=== PATIENT | male | born 1945 | race Caucasian/White ===

== ENCOUNTER 2023-11-23 10:23 | Outpatient (RCR) | payer MEDICARE, SELFPAY | END 2023-11-23 23:59 | disposition home or self-care (01) | LOC: CRHB 10:23 | PROVIDERS: ATTENDING PHYSICIAN Internal Medicine Cardiovascular Disease; FAMILY PHYSICIAN Family Medicine | DX: I25.10 Atherosclerotic heart disease of native coronary artery without angina pectoris (principal); Z95.1 Presence of aortocoronary bypass graft | CPT/HCPCS: G0422; G0423 ==

== ENCOUNTER 2023-12-19 08:28 | Outpatient (RCR) | payer MEDICARE, SELFPAY ==
[2023-12-09 08:27] VITALS: BP 117/54
[2023-12-09] MEDS: INVANZ 60 MG IV (08:57)
[2023-12-09 09:21] LABS: INR 1.61; PT 19.4 Sec (11.4-14.6)
[2023-12-10 08:50] VITALS: BP 127/64
[2023-12-10] MEDS: INVANZ 60 MG IV (08:55)
[2023-12-11 08:55] VITALS: BP 128/70
[2023-12-11] MEDS: INVANZ 60 MG IV (08:58)
[2023-12-12] MEDS: INVANZ 60 MG IV (09:07)
[2023-12-12 09:11] VITALS: BP 134/61
[2023-12-12 09:33] LABS: % Basophils 0.2 % (0-2); % Eosinophils 0.2 % (0-6); % Immature Granulocytes 0.5 % (0-0.5); % Lymphocytes 11.4 % (20.5-51.1); % Monocytes 7.7 % (1.7-9.3); Absolute Immature Granulocytes 0.1 10^3/uL (0-0.05); Absolute Lymphocytes 1.1 10^3/uL (1.2-3.4); Absolute Monocytes 0.7 10^3/uL (0.1-0.6); Absolute Neutrophils 7.5 10^3/uL (1.4-6.5); Hemoglobin 8.4 g/dL (13.0-18.0); Mean Corp Hgb Conc. 32.3 g/dL (33.0-37.0); Mean Corpuscular Hgb 29.2 pg (27.0-31.0); Mean Corpuscular Volume 90.3 fL (80.0-94.0); Mean Platelet Volume 10.8 fL (7.4-10.4); Nucleated Red Blood Cells % 0 % (-); Platelet Count 264 10^3/uL (130-400); Red Blood Cell Count 2.88 10^6/uL (4.70-6.10); Red Cell Dist. Width 16.2 % (11.5-14.5); White Blood Cell Count 9.3 10^3/uL (4.8-10.8)
[2023-12-12 09:38] LABS: INR 2.11
[2023-12-12 09:53] LABS: ALT (SGPT) 93 U/L (0-50); AST (SGOT) 85 U/L (17-59); Albumin 2.4 g/dl (3.5-5.0); Alkaline Phosphatase 250 U/L (38-126); Blood Urea Nitrogen 30 mg/dl (9-20); Calcium 7.6 mg/dl (8.4-10.2); Carbon Dioxide 29 mmol/L (22-30); Chloride 104 mmol/L (98-107); Direct Bilirubin 0.6 mg/dl (0.0-0.4); Glucose 214 mg/dl (70-99); Potassium 4.3 mmol/L (3.5-5.1); Sodium 132 mmol/L (135-145); Total Bilirubin 0.7 mg/dl (0.2-1.3); Total Protein 7.7 g/dl (6.3-8.2); eGFR > 60.00
[2023-12-13 09:25] VITALS: BP 116/56
[2023-12-13] MEDS: INVANZ 60 MG IV (09:37)
[2023-12-14 09:22] VITALS: BP 117/60
[2023-12-14] MEDS: INVANZ 60 MG IV (09:32)
[2023-12-15] MEDS: INVANZ 60 MG IV (08:57)
[2023-12-15 09:04] VITALS: BP 101/56
[2023-12-16 08:30] VITALS: BP 117/40
[2023-12-16] MEDS: INVANZ 60 MG IV (08:59)
[2023-12-17 08:02] VITALS: BP 136/59
[2023-12-17] MEDS: INVANZ 60 MG IV (08:06)
[2023-12-18] MEDS: INVANZ 60 MG IV (09:55)
[2023-12-18 10:30] VITALS: BP 142/74
[2023-12-19 08:58] LABS: Glucose - Point of Care 144 mg/dl (70-99)
[2023-12-19] MEDS: INVANZ 60 MG IV (09:01)
[2023-12-19 09:06] VITALS: BP 108/46
[2023-12-19 09:15] LABS: % Basophils 0.3 % (0-2); % Eosinophils 0.4 % (0-6); % Immature Granulocytes 0.9 % (0-0.5); % Lymphocytes 16.7 % (20.5-51.1); % Monocytes 8.4 % (1.7-9.3); % Neutrophils 73.3 % (42.2-75.2); Absolute Immature Granulocytes 0.1 10^3/uL (0-0.05); Absolute Lymphocytes 1.3 10^3/uL (1.2-3.4); Absolute Monocytes 0.7 10^3/uL (0.1-0.6); Absolute Neutrophils 5.7 10^3/uL (1.4-6.5); Hematocrit 19.7 % (39.0-52.0); Hemoglobin 6.3 g/dL (13.0-18.0); Mean Corpuscular Hgb 28.4 pg (27.0-31.0); Mean Corpuscular Volume 88.7 fL (80.0-94.0); Mean Platelet Volume 10.7 fL (7.4-10.4); Nucleated Red Blood Cells % 0 % (-); Platelet Count 282 10^3/uL (130-400); Red Blood Cell Count 2.22 10^6/uL (4.70-6.10); Red Cell Dist. Width 15.8 % (11.5-14.5); White Blood Cell Count 7.7 10^3/uL (4.8-10.8)
[2023-12-19 09:24] LABS: ALT (SGPT) 59 U/L (0-50); AST (SGOT) 61 U/L (17-59); Albumin 2.2 g/dl (3.5-5.0); Alkaline Phosphatase 205 U/L (38-126); Blood Urea Nitrogen 57 mg/dl (9-20); Calcium 7.3 mg/dl (8.4-10.2); Carbon Dioxide 28 mmol/L (22-30); Chloride 103 mmol/L (98-107); Glucose 170 mg/dl (70-99); Potassium 5.1 mmol/L (3.5-5.1); Sodium 133 mmol/L (135-145); Total Bilirubin 0.6 mg/dl (0.2-1.3); Total Protein 7.2 g/dl (6.3-8.2); eGFR > 60.00
--- NOTE | 2023-12-19 12:43 | PTCARENOTE ---
08- Pt arrived for IV antibiotic and IVIG infusion therapy. Pt's noted Patient had been fasting for routine labs but patient felt dizzy and they gave him 'fruit smoothy' Pt complaining of nausea and continued dizziness. Pt assisted to lounge
chair, states ' feels dizzy when standing ' Pt reclining in lounge chair, Feet elevated, did not loose consciousness. Oriented x 3 VS 97.5 hr 83 resp 16 BP 108/46 Blood sugar via AccuCheck 144. Pt given additional chris-dwight and lyly crackers.
Pt states 'feeling better'.
Routine labs drawn as ordered. IV antibiotic Ertapenem 1 gram given as directed.
914- Patient assisted to bathroom via wheelchair. Patient is an assist x 2. Patient unsteady on feet, complaints of dizziness with standing.
Patient assist back to lounge chair to reclining position. BP 94/42 HR 69 Pulse Ox 99% on room air.
Labs resulted HGB 6.3/ HCT 19.7 Labs one week ago HGB 8.4/ HCT 26. Pt denies any bleed from urine or stool
Dr. Evans notified. Pt to go to ED for evaluation
Patient and son notified .
Leslie RN form ED notified of patient transfer.
Patient taken to ED via stretcher accompanied by myself and additional RN. Patient remains AAO x3 Report given to Valerie SAMSON room 7. Pt transferred to ED stretcher.
[2023-12-19 18:21] LABS: Glucose - Point of Care 147 mg/dl (70-99)
== END 2023-12-21 11:23 | disposition home or self-care (01) ==
LOC: OID 08:28
PROVIDERS: ATTENDING PHYSICIAN Internal Medicine Infectious Disease; FAMILY PHYSICIAN Family Medicine; PRIMARYCARE PHYSICIAN Neurological Surgery; REFERRING PHYSICIAN Internal Medicine Cardiovascular Disease
DX: G61.81 Chronic inflammatory demyelinating polyneuritis (principal); A41.9 Sepsis, unspecified organism; N18.30 Chronic kidney disease, stage 3 unspecified; J18.9 Pneumonia, unspecified organism; E11.22 Type 2 diabetes mellitus with diabetic chronic kidney disease
CPT/HCPCS: 80048; 80053; 80076; 82962; 85025; 85610; 96365; J1335; J1569

== ENCOUNTER 2023-12-19 15:21 | Inpatient (IN) | payer MEDICARE, SELFPAY ==
[2023-12-19] VITALS (30 sets, daily range): BP systolic 81–124; BP diastolic 36–65
--- NOTE | 2023-12-19 11:03 | ED.GENMED ---
History of Present Illness
General
Chief Complaint: Fainting Sensation
Source: patient and family
Exam Limitations: none
Time Seen by Provider: 12/19/23 10:15
Nursing documentation reviewed up to this point in time: agreed with
Travel History
Have you had any contact with someone who has COVID-19?: No
Do you have any symptoms of coronavirus? Fever > 100 degrees, chills, cough, shortness of breath, sore throat, loss of taste or smell, muscle aches, or headache?: No
History of Present Illness
History of Present Illness:
Patient is a 78-year-old male with history of A-fib CAD with bypass congestive heart failure aortic stenosis pacemaker on Coumadin, chronic inflammatory demyelinating polyneuropathy diabetes presents to the ER for evaluation. Patient was getting an
infusion of antibiotic as well as his treatment for CI DP prior to arrival however was found to be anemic and was sent to the ER.
Patient was recently admitted December 04 to December 08 for sepsis left pleural effusion/empyema. He had thoracentesis at that time with chest tube. He was discharged home w/ PICC Line
Past History
Past History
ED Past Medical History: Arrthythmia (Atrial fib), CAD (on Coumadin), CHF, HTN, Hypercholesterolemia, NIDDM, Valvular disease, Other (Diabetic neuropathy, PNA, Prostatitis, Cellulitis, Anemia) and Other (CIDP (chronic inflammatory demyelinating poly
neuropathy) Receives Immune Globulin monthly., Cellulitis)
ED Past Surgical History: Cardiac (Pacemaker, aortic valve replaced, CABG) and Orthopedic (Right Tricep tendon repair)
Social History
Tobacco: Non-smoker
Alcohol: None
Personal:
Living: with family
Employment: Retired
Phy Exam
General Physical Exam
General Presentation: no apparent distress
General age: appears stated age
General Skin: warm, dry and pale
General Habitus: elderly
General Mental: alert
General Hydration: dry mucous membranes
Eye Exam
Eye Exam: PERRL
Cardiovascular Exam
Cardiovascular Exam: regular rate/rhythm, no murmur and normal peripheral pulses
Pulmonary Exam
Pulmonary Exam: other (slight rhonchi left base, right base clear )
Neurological Exam
Neurological Exam: alert and oriented x3
Musculoskeletal Exam
Musculoskeletal Exam: full ROM
Skin Exam
Skin Exam: normal color and warm/dry
Psychiatric Exam
Psychiatric Exam: normal mood/affect
Course
Orders/Labs/Results
Orders:
Orders
12/19/23 10:22
EKG [Electrocardiogram (*1)] Urgent
Reason for Study: Fatigue / Weakness
EKG- Treatment ONCE
12/19/23 11:57
* Blood Bank Products Urgent
'david Orders: Wyatt/Jameson
Blood Bank Products: *Packed RBC Leuko(PRBC's)
Quantity: 2
Transfuse Today: Yes
Reason: Anemia
IV Insert/Care/Rem.- Treatment PRN
12/19/23 11:58
0.9% Sodium Chloride 500 ml [Nss] 500 ml IV BOLUS
12/19/23 12:04
PT/INR [Prothrombin Time] Urgent
12/19/23 12:15
CR Chest - 2 Views Urgent
Comment:
Reason For Exam: PICC placement
12/19/23 12:21
Type+Screen Urgent
12/19/23 13:38
Hemoglobin Urgent
12/19/23 14:48
Admit/Transfer Patient As Directed
Co-Sign Provider:
Level of Care: Inpatient admission
Assign to:: IMU- Intermediate Care
Physician / Group: Derek
Diagnosis: GI Bleed
Reason for Hospitalization: blood transfusion, GI consult
Expected length of stay greater than two midnights?: Yes
ELOS- Estimated Length of Stay in days: 3
I certify the patient meets the requirements for IP care: Yes
12/19/23 14:50
Code Status As Directed
Resuscitation Status: Full Code
12/19/23 15:00
0.9% Sodium Chloride 1000 ml [Nss] 1,000 ml IV BOLUS
Midodrine [ProAmatine] 5 mg PO NOW STA
Pantoprazole [Protonix IV] 80 mg IV NOW STA
12/19/23 20:00
H&H Q6H
12/20/23 02:00
H&H Q6H
12/20/23 08:00
H&H Q6H
12/20/23 14:00
H&H Q6H
Abnormal Lab Results
12/19/23 12/19/23 12/19/23
12:04 12:21 13:38
Hgb 6.0 L* g/dL
(13.0-18.0)
PT 36.4 H Sec
(11.4-14.6)
Crossmatch IS Only See Detail
12/19/23 13:38
Vital Signs
Initial and Last Documented VS:
Initial Vital Signs
Temp Pulse Resp BP Pulse Ox
98.2 F 73 16 104/58 96
12/19/23 10:23 12/19/23 10:23 12/19/23 10:23 12/19/23 10:23 12/19/23 10:23
Last Documented Vital Signs
Temp Pulse Resp BP Pulse Ox
98.4 F 69 18 97/49 98
12/19/23 16:51 12/19/23 17:06 12/19/23 17:06 12/19/23 17:06 12/19/23 17:06
Clinical Appeals Reviewer consulted with Physician
Clinical Appeals Reviewer consulted with physician?: Yes
Name of Physician Consulted: wyatt
MDM/Problems Addressed
Differential Diagnosis Includes:
Not limited to anemia, dehydration
MDM/Problems Addressed:
78. -year-old male complains of weakness. As documented patient recently admitted for empyema and has a history of chronic inflammatory demyelinating polyneuropathy. Patient was at the infusion center and sent here for evaluation for low
hemoglobin. Patient's hemoglobin today drawn at 8:43 AM is significantly low at 6.3/19.7 compared to 8.4/26.0 on December 12, 7 days ago.
Patient arrives pale he denies shortness of breath he denies any rectal bleeding stools are brown on exam however trace heme positive. Patient is on Coumadin history of A-fib, bypass, pacemaker. Patient no complaints of chest pain. His heart rate
is 71 he is V paced.
Blood consent signed. Will order 2 units.
Patient's BUN is elevated at 57 with a creatinine of 1.2. Patient was given small fluid bolus. pt adm to hospitalist
1314: Patient as per nurse had large BM that is black. Admitting hospitalist made aware. Repeat hemoglobin ordered and 6.0
Chronic conditions affecting care:
On Coumadin for cardiac history: A-fib CHF CAD aortic stenosis chronic inflammatory D-mine polyneuropathy
*Critical Care Note
Total Time (30-74mins, 75-104mins- exclusive of procedures): Not Applicable
ED Attending Note
-
Portions of this chart may have been created with voice recognition software.� Occasional wrong word or��sound alike� substitutions may have occurred due to the inherent limitations of voice recognition software.
Discharge Plan
Departure
Patient Disposition: Admit
Date of Disposition: 12/19/23
Time of Disposition: 12:53
Admit to: Med/Surg
Admit to doctor: hospitalist
Presentation/result/management discussed w/ accepting MD/DO: Hospitalist
Patient with high blood pressure during this ER visit?: No
Condition: Fair
Covid-19: Not Applicable
Discharge Problem:
Anemia, Dehydration
Interventions
Interventions:
*Risk Screen - Suicide Last Done: 12/19/23 10:23
*General Assessment Last Done: 12/19/23 10:23
*Neglect/Abuse Screening Last Done: 12/19/23 10:23
*ED COVID-19 Vaccine History Last Done: 12/19/23 10:34
ED- Cardiac Assessment Last Done: 12/19/23 10:29
ED- Neurological Assessment Last Done: 12/19/23 10:29
[2023-12-19] MEDS: NSS 500 IV ×2 (12:03→21:47)
[2023-12-19 12:31] LABS: PT 36.4 Sec (11.4-14.6)
--- NOTE | 2023-12-19 14:06 | HPS.HSE ---
Addendum entered and electronically signed by Gabriel Reed MD 12/19/23 16:37:
I saw and examined the patient.
The HEEL BURNISHER or PA's note was reviewed and I agree with the note.
Comment: 78-year-old male with recent hospitalization with empyema, CAD, CHF, aortic stenosis, A-fib, hypertension, diabetes mellitus, CKD came to the hospital from IVIG infusion center for dizziness and weakness along with anemia. While patient
was in the ED he had heme positive stool however later on had a black bowel movement. Patient has been ordered blood in the ED. Will transfuse. GI consulted. Hold Coumadin. Cardiology following. INR daily. Per neurology there is no urgent
need for IVIG so we will hold off. IVF.
General:�Comfortable, Conversant and Other (Appears pale)
HEENT:�Anicteric and Moist mucous membranes
Respiratory:�Clear and Non Labored Respirations
Cardiac:�S1/S2 and Regular Rhythm
GI:�Soft and Tender (Mild throughout without rebound or guarding)
Rectal:�Hem Positive (Per ED Provider)
Musculoskeletal:�No Clubbing, No Cyanosis and No Edema
Skin:�Warm and Dry
Neuro:�Awake, Alert, Oriented and Nonfocal/grossly intact
I spent a total of 77 minutes with the patient or on the floor. More than 50% of this time involved counseling and coordination of care.
Original Note:
Family Physician
-
Family Physician: Scott Martinez
Chief Complaint
-
Dizziness
History of Present Illness
Patient 78 old male past medical history of CAD, CHF, , A-fib, HTN, DM and CKD who presents with dizziness. Patient was at the infusion room this morning to receive his IVIG as well as advance following his recent hospitalization for empyema. He
was noted to be hypotensive, and very restless at the infusion room. He is weekly blood work revealed a drop in his hemoglobin of 2 g compared to the week prior, which prompted them to send him to the emergency department for evaluation. While in
the emergency department patient had a large black bowel movement. Patient denies any black bowel movements at home prior to this. He did note nausea/upset stomach this morning. He is maintained on Coumadin for A-fib and recent left atrial
appendage clip. He denies prior history of GI bleed.
Medical History
Past Medical History
Past Medical History: Reports Other
Additional Past Medical History:
Coronary Artery Disease
Chronic Diastolic Heart Failure
Aortic stenosis s/p Bioprosthetic Aortic Valve Replacement
Paroxysmal Atrial Fibrillation
Essential Hypertension
Hyperlipidemia
Diabetes Mellitus, Type II
CKD Stage III
CIDP-Chronic Idiopathic Demyelinating Polyneuropathy
Restless Leg Syndrome
Past Surgical History: Reports Other
Additional Past Surgical History:
CAB x3, Biologic AVR, MAZE procedure and SHIRA clip-Dr. Benjamin-07/26/2023
Social History
Tobacco: Non-smoker
Alcohol: None
Drug: None
Personal:
Living: With Family
Family History
Family History: Not pertinent
Allergies / Home Medications
Allergies reflects when Allergies were last updated in [facility].
Home Medications with original date entered in [facility]
Allergy/Medication List:
Allergies
Allergy/AdvReac Type Severity Reaction Status Date / Time
aspirin Allergy sweats Verified 12/19/23 10:21
atorvastatin Allergy Unknown Verified 12/19/23 10:21
diphenhydramine Allergy tightness Verified 12/19/23 10:21
of skin
furosemide Allergy Hives Verified 12/19/23 10:21
heparin (porcine) Allergy Hives Verified 12/19/23 10:21
Penicillins Allergy Hives Verified 12/19/23 10:21
Salicylates * Allergy sweats Verified 12/19/23 10:21
Jnaxuhp-ZTM-TdK Reductase Allergy Unknown Verified 12/19/23 10:21
Inhibitor
[Bcoyhif-Pke-Fhe Reductase
Inhibitor]
Home Medications
atorvastatin 80 mg tablet 80 mg PO .SEE BELOW High Cholesterol 08/18/23
aspirin 81 mg tablet,delayed release 81 mg PO DAILY Blood Clot Prevention/Tx 11/24/23
empagliflozin 10 mg tablet (Jardiance) 10 mg PO QPM Diabetes/CHF 11/24/23
Ertapenem [Invanz] 1,000 mg 120 mls/hr IV Q24H Infection 12/08/23
ethacrynic acid 25 mg tablet 25 mg PO DAILY #30 tabs 12/08/23
gabapentin 300 mg capsule 300 mg PO TID Pain #0 caps 12/08/23
midodrine 5 mg tablet 5 mg PO BID Blood pressure #60 tabs 12/08/23
Gammagard 70 g IV Q4W 12/19/23
acetaminophen 325 mg tablet (Tylenol) 650 mg PO DAILYPRN PRN mild pain 12/19/23
lisinopril 20 mg tablet 20 mg PO .SEE BELOW 12/19/23
warfarin 4 mg tablet 4 mg PO SUMOTUWETHSA@1800 Blood clot prevention/tx 12/19/23
warfarin 4 mg tablet 8 mg PO FR@1800 12/19/23
Review of Systems
-
A 12 point ROS was completed and negative except as noted: Yes
Constitutional: Denies Fever or Chills
Respiratory: Denies Cough or Trouble Breathing
Cardiac: Denies Chest Pain
Abdomen/GI: Reports See HPI
Neurological: Reports Dizzy
Physical Exam
Vital Signs
Vital Signs
Temp Pulse Resp BP Pulse Ox
98.2 F 74 19 111/42 99
12/19/23 10:23 12/19/23 13:16 12/19/23 13:16 12/19/23 13:16 12/19/23 13:16
Physical Exam
General: Comfortable, Conversant and Other (Appears pale)
HEENT: Anicteric and Moist mucous membranes
Respiratory: Clear and Non Labored Respirations
Cardiac: S1/S2 and Regular Rhythm
GI: Soft and Tender (Mild throughout without rebound or guarding)
Rectal: Hem Positive (Per ED Provider)
Musculoskeletal: No Clubbing, No Cyanosis and No Edema
Skin: Warm and Dry
Neuro: Awake, Alert, Oriented and Nonfocal/grossly intact
Laboratory Results
-
12/19/23 13:38
Laboratory Results
PT 36.4 Sec (11.4-14.6) H 12/19/23 12:04
INR 3.60 12/19/23 12:04
Data Reviewed
-
Lab Data: Labs Reviewed by me
Old Records: Reviewed
Impression/Plan
-
Acute Blood Loss Anemia secondary to GI Bleed
-Transfuse 2 units PRBCs
-Monitor serial Hgb
GI Bleed, likely upper in nature
-Consult GI
-Hold Coumadin
-Continue Protonix
-NPO with meds
Recent Sepsis secondary to Empyema
-Continue Invanz through Jan 05
Coronary Artery Disease s/p CABG
-Hold aspirin due to GI Bleed
Chronic Diastolic Heart Failure
-Hold ethacrynic acid
-Monitor Is&Os and Daily Weights
Paroxysmal Atrial Fibrillation s/p SHIRA clip and MAZE in Jul 2023
-Consult Cardiology
-Coumadin on hold due to GI Bleed
Hypotension
-Continue midodrine as prior to admission
Hyperlipidemia
-Hold atorvastatin while NPO
Diabetes Mellitus, Type II
-Monitor sugars and continue coverage insulin
-Hold Jardiance
CKD Stage III
-Creatinine at baseline
CIDP-Chronic Idiopathic Demyelinating Polyneuropathy
-Due to IVIG today, Dec 19
-Consult Neurology
-Continue gabapentin
Hx Aortic Stenosis s/p Bioprosthetic Aortic Valve Replacement
DVT proph: SCDs
Code Status: Full Code
--- NOTE | 2023-12-19 15:27 | CON.NEURO4 ---
Consultation - Neurology 4
-
CONSULTING PHYSICIAN: Sharon Pratt
REFERRING PHYSICIAN: ER
DICTATED BY: Sharon Pratt
DATE/TIME OF REQUEST: 12/19/23
DATE/TIME OF CONSULTATION: 12/19/23
Reason for Consultation: History of CIDP and IVIG infusions
History of Present Illness:
Patient is a 78-year-old male with a past medical history of coronary artery disease status post CABG, aortic stenosis status post aortic valve replacement, paroxysmal atrial fibrillation on Coumadin presented to hospital with dizziness and has
been found to have GI bleed with hypotension.
Patient initially presented from his infusion suite where he had been planned for infusion for CIPD but upon checking his vitals and evaluating him he was noted to be hypotensive, and had had a 2 g hemoglobin decreased compared to baseline so sent
to the ED. patient's family noted that he did have a melanotic bowel movement that was new, no vomiting, patient does have some mild abdominal pain. He has been maintained on Coumadin for history of atrial fibrillation.
Patient was diagnosed with CIDP around the year 1999 and 2000 he did have a battery of test including lumbar lab work and EMG. Significant weakness to the point of paralysis and had significant improvement with IVIG apparently he was told he would
never walk again. Since then he has been getting IVIG and a 1 day infusion every 4 weeks. His last infusion was approximately November 11, and he had to missed the planned infusion for December 08 due to recent hospitalization here for sepsis
empyema and pneumonia.
Patient does feel like he has had some weakness in the past couple of days denies any dysarthria dysphagia double vision or ptosis, he is able to ambulate at baseline without assistance.
Past Medical History: CIDP, Hyperlipidemia, atrial fibrillation, hypertension, CKD, DMII, restless legs syndrome
Surgical History: CABG, bioprosthetic aortic valve replacement, MAZE procedure and SHIRA clip
Family History: Non-contributory
Social History: Retired, and has adult children, retired from working on telephone poles
Review of Symptoms:
Patient denies any fever, headache, chest pain, shortness of breath, GI or symptoms.
Physical Exam:
Neurologic Examination:
The patient is awake, alert and oriented x 3. He is able to follow commands and answer questions appropriately. There is no aphasia or dysarthria. On cranial nerve assessment, pupils are 3 mm bilateral, round and reactive to light and
accommodation. Visual kim are full. Extraocular movements are intact. Facial sensations are intact and bilaterally symmetrical, there is no facial asymmetry. Hearing is intact bilaterally to normal conversation volume. Tongue palate and uvula
are midline. Sternocleidomastoid strengths are full bilaterally. Motor strengths are 5/5 bilateral for shoulder abduction arm flexion/extension, finger flexion, hip flexion knee extension hip abduction/adduction ankle dorsiflexion/plantarflexion.
There is no drift or involuntary movement noted. Reflexes absent throughout. Coordination is intact by finger to nose bilaterally.
Neuro Imaging: None
Impression
1. Current GI bleed on coumadin with hypotension. Contributing some to sense of weakness.
2. CIDP maintained on once a month IVIG for a 1 day infusion for many years. Currently patient's strength on confrontation testing is full.
3.
4.
Recommendations:
1. Ideally the patient should receive 1 gram/kg dose of IVIG when active GI bleed and hypotension resolve, as the patient had missed his previously planned dose on 12/08 due to recent hospitalization and is now 5 weeks from his last maintenance dose
I am concerned that delaying further will lead to slow worsening of strength. However I anticipate there will be some constraints of cost and insurance coverage and giving such a medication usually plan for an outpatient infusion center in the
inpatient setting, and do not want to produce unwarranted costs for the patient. For now there is not an urgent need for giving IVIG dose today.
2. Will discuss with patient's outpatient neurologist
3. There are no other immune therapies for CIPD I would recommend at this time, would have concern about starting steroids in patient with active GI bleed.
4. No diagnostic workup needed from neurologist perspective
Discussed patient care with: Patient and his family, hospitalist team
[2023-12-19] MEDS: ProAmatine 5 MG PO (15:31)
[2023-12-19] MEDS: PROTONIX IV 80 MG IV (15:32)
[2023-12-19] MEDS: NSS 1000 IV (15:40)
--- NOTE | 2023-12-19 16:02 | CON.CAR ---
Addendum entered and electronically signed by Lan Sloan MD 12/19/23 16:48:
78 yo male with PMH of permanent Afib on warfarin, AVR with a 25 mm bioprosthetic aortic valve and coronary artery bypass graft x3 (GRIMES�LAD, SVG�OM and RCA) with maze, and 45 mm atrial clip 07/2023. Sent to ED with abnormal labs--Hgb 6. Appears to
be symptomatic anemia, acute. +SOB, -CP. Exam with irregular rhythm, no murmurs, trace LE edema. Hgb 6.
Acute symptomatic anemia. Likely GI bleed with heme positive stool. Hold coumadin. OK for Vit K if becomes hemodynamically unstable. GI evaluation pending.
Original Note:
Consultation
Consultation Request
Date/Time Consultation Requested: 12/19/23 2:45p
Date/Time Consultation Performed: 12/19/23 3:15p
Requesting Provider: Leonor Esteban PA-C
Performing Provider: KERRY Martinez for Dr. Sloan
Reason for Consultation: gi bleed on Coumadin
Medical History
-
Chief Complaint: lightheaded, anemia
History of Present Illness:
Mr. Knowles is a 78 yo male with permanent atrial fibrillation on chronic Warfarin, s/p AVR with a 25 mm bioprosthetic aortic valve and coronary artery bypass graft x3 (GRIMES�LAD, SVG�OM and RCA) with maze, and 45 mm atrial clip, HTN, HLD, DM, chronic
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 RN sent him to the ER for
evaluation. His recent admission (d/c 12/08/22) with sepsis, PNA, ANI with left sided effusion and empyema requiring chest tube, now with PICC line. He was also due for IVIG today, but with acute symptomatic anemia, he was sent to the ER. He was
heme positive in the ER with black stool and lower abdominal pain. We are consulted for anemia on chronic Warfarin with INR 3.6 today, holding Warfarin.
Past Medical History
Past Medical History: Other (as above)
Past Surgical History: Cardiac (CABG/AVR) and Orthopedic
Social History
Tobacco: Non-Smoker
Alcohol: None
Personal:
Living: With Family
Family History
Family History: Reviewed & Not Pertinent
Allergies / Home Medications
Allergy/AdvReac Type Severity Reaction Status Date / Time
aspirin Allergy sweats Verified 12/19/23 10:21
atorvastatin Allergy Unknown Verified 12/19/23 10:21
diphenhydramine Allergy tightness Verified 12/19/23 10:21
of skin
furosemide Allergy Hives Verified 12/19/23 10:21
heparin (porcine) Allergy Hives Verified 12/19/23 10:21
Penicillins Allergy Hives Verified 12/19/23 10:21
Salicylates * Allergy sweats Verified 12/19/23 10:21
Ccmbybz-RPI-PbH Reductase Allergy Unknown Verified 12/19/23 10:21
Inhibitor
[Dunphyq-Qoe-Won Reductase
Inhibitor]
Medication Instructions Recorded Confirmed Type
atorvastatin 80 mg tablet 80 mg PO .SEE BELOW High 08/18/23 12/19/23 History
Cholesterol
aspirin 81 mg tablet,delayed 81 mg PO DAILY Blood Clot 11/24/23 12/19/23 History
release Prevention/Tx
empagliflozin 10 mg tablet 10 mg PO QPM Diabetes/CHF 11/24/23 12/19/23 History
(Jardiance)
Ertapenem [Invanz] 1,000 mg 120 mls/hr IV Q24H Infection 12/08/23 12/19/23 Rx
ethacrynic acid 25 mg tablet 25 mg PO DAILY #30 tabs 12/08/23 12/19/23 Rx
gabapentin 300 mg capsule 300 mg PO TID Pain #0 caps 12/08/23 12/19/23 Rx
midodrine 5 mg tablet 5 mg PO BID Blood pressure #60 tabs 12/08/23 12/19/23 Rx
Gammagard 70 g IV Q4W 12/19/23 12/19/23 History
acetaminophen 325 mg tablet 650 mg PO DAILYPRN PRN mild pain 12/19/23 12/19/23 History
(Tylenol)
lisinopril 20 mg tablet 20 mg PO .SEE BELOW 12/19/23 12/19/23 History
warfarin 4 mg tablet 4 mg PO SUMOTUWETHSA@1800 Blood 12/19/23 12/19/23 History
clot prevention/tx
warfarin 4 mg tablet 8 mg PO FR@1800 12/19/23 12/19/23 History
Review of Systems
-
History Source: Patient
All other systems: Negative unless noted
Physical Exam
Vital Signs
Temp Pulse Resp BP Pulse Ox
98.3 F 70 20 81/58 98
12/19/23 14:38 12/19/23 15:31 12/19/23 14:38 12/19/23 15:31 12/19/23 14:38
Physical Exam
General: Other (pale, fatigued, lightheaded )
HEENT: Normocephalic
Respiratory: Clear and Non Labored Respirations
Cardiac: S1/S2 and Regular Rhythm
Breast: Deferred by me
GI: Soft and Non Tender (mild diffuse lower abdomen )
Rectal: Deferred by Provider
Musculoskeletal: No Clubbing
Skin: Warm and Dry
Neuro: AO x 3
Psych: Calm
Impression / Plan
-
Anemia - acute, symptomatic.
- hgb 6.3 on admit.
- GI following, black stool in the ER.
- receiving PRBCs currently.
- HOLD Warfarin.
CAD S/P CABG x3 by Dr. Benjamin 07/26/23 - stable.
- GRIMES to LAD, Ao to RSVG to OM1, Ao to RSVG to DRCA, B/L LALY CORBETT.
- Denies CP.
- Continue medical therapy.
S/P AVR 07/26/23, bio (25mm Inspiris).
- Echo 08/10/23 - 60-65%, stable AVR peak/mean gradients 10/4 mmHg no AR, no change.
Permanent atrial fibrillation
- Left atrial MAZE/ SHIRA Exclusion (45mm Clip).
- Oral Anticoagulation: on chronic Warfarin INR 3.6 today. HOLD Warfarin given severe anemia/GIB.
- [id number]: score at least 5 (Heart failure, HTN, age 75 or more, Vascular disease).
CKD - stable.
SSS s/p PPM - Medtronic, stable.
CIDP - receives IVIG per neurology.
Data Reviewed
-
EKG: Tracing Personally Visualized and interpreted (v paced 71 bpm )
Medical Tests (Nuc Med, Echo etc): Report Reviewed by me (Echo 08/10/23 - 60-65%, stable AVR peak/mean gradients 10/4 mmHg no AR, no change.)
Labs: Labs Reviewed by me
Old Records: Reviewed
[2023-12-19] MEDS: NEURONTIN 300 MG PO (18:10)
[2023-12-19 21:53] LABS: Glucose - Point of Care 193 mg/dl (70-99)
[2023-12-19 22:17] LABS: Hematocrit 17.2 % (39.0-52.0); Hemoglobin 5.7 g/dL (13.0-18.0)
[2023-12-19 22:36] LABS: Troponin I 0.015 ng/ml
[2023-12-20] VITALS (73 sets, daily range): BP systolic 89–186; BP diastolic 27–71; BMI 24.4
[2023-12-20] MEDS: NEURONTIN PO (00:19)
[2023-12-20] MEDS: AQUAMEPHYTON 51 MG IV (00:55)
[2023-12-20 01:05] LABS: Fibrinogen 265 MG/DL (199-459)
[2023-12-20] MEDS: PROTONIX 250 IV (01:29)
[2023-12-20 05:12] LABS: Mean Corp Hgb Conc. 34.8 g/dL (33.0-37.0); Mean Corpuscular Hgb 30.5 pg (27.0-31.0); Mean Corpuscular Volume 87.6 fL (80.0-94.0); Mean Platelet Volume 10.6 fL (7.4-10.4); Platelet Count 129 10^3/uL (130-400); Red Blood Cell Count 2.26 10^6/uL (4.70-6.10); Red Cell Dist. Width 13.8 % (11.5-14.5); White Blood Cell Count 7.7 10^3/uL (4.8-10.8)
[2023-12-20 05:20] LABS: Hematocrit 19.8 % (39.0-52.0); Hemoglobin 6.9 g/dL (13.0-18.0)
[2023-12-20 05:22] LABS: INR 1.64; PT 19.7 Sec (11.4-14.6)
[2023-12-20 05:37] LABS: Blood Urea Nitrogen 71 mg/dl (9-20); Calcium 6.9 mg/dl (8.4-10.2); Carbon Dioxide 25 mmol/L (22-30); Chloride 107 mmol/L (98-107); Glucose 152 mg/dl (70-99); Potassium 3.8 mmol/L (3.5-5.1); Sodium 137 mmol/L (135-145); eGFR > 60.00
--- NOTE | 2023-12-20 06:40 | PTCARENOTE ---
Assumed care of Pt from Day shift RN with #2 PRBC transfusing. Pt AAOx3 presenting with drowsiness but verbally arousable. Infusion completed and charted by day RN before leaving. Pt BP becoming soft and continuing to drop, 88/44 MAP 58, manual
100/36. Pt assessed, pale and drowsy. Pt complaining of 2/10 new chest pain that is a stabbing ache. EKG done. Night UNDERWRITING ASSISTANT made aware of all. H&H, trop drawn, 500 NS bolus given. By this time Pt has had 2 loose black/red BM. H&H came back critical at
5.7-17.2, Night Lay Brother made aware,2 more units of PRBC ordered. Alerted UNDERWRITING ASSISTANT to card report saying Vit k ok if becoming hemodynamically unstable. UNDERWRITING ASSISTANT consulting ER DR. SAMSON TT pony cylinder press operator GI to make aware of pt situation and consult. Orders for vitamin K given
and administered. Per pharmacy order for Kcentra needed to be verified due to Pt having heparin allergy, made Lay Brother aware. VAT called for 20IV site for CT angio. CT and 4 units of FFP ordered. Pt transferred to CT with PRBC,FFP,Protonix by 2 RN's and
tech. Radiologist called with CT report, relayed to UNDERWRITING ASSISTANT. Morning critical labs of H&H 6.9/19.8 and Ca6.9, Night UNDERWRITING ASSISTANT made aware. By end of shift #4 total of FFP, 3rd and 4th PRBC transfused, Pt having multiple black/red stools, BP up with MAP above 65.
All documentation in work list and JAN.
--- NOTE | 2023-12-20 07:46 | W.PN.CD ---
Today's Communication / Plan
-
- treat anemia
Impression / Plan
-
78 yo male with PMH of permanent Afib on warfarin, AVR with a 25 mm bioprosthetic aortic valve and coronary artery bypass graft x3 (GRIMES�LAD, SVG�OM and RCA) with maze, and 45 mm atrial clip 07/2023.
Anemia - acute, symptomatic.
- hold AC
- hold ACEi
- Hb 6.9 after four units PRBC
- more PRBC
CAD S/P CABG x3 by Dr. Benjamin 07/26/23 - stable.
- GRIMES to LAD, Ao to RSVG to OM1, Ao to RSVG to MARNIE, B/L LE EVH.
- Denies CP.
- single agent warfarin or NOAC on back end of this admit.
S/P AVR 07/26/23, bio (25mm Inspiris) - Echo 08/10/23 - 60-65%, stable AVR peak/mean gradients 10/4 mmHg no AR, no change.
Permanent atrial fibrillation
- Left atrial MAZE/ SHIRA Exclusion (45mm Clip).
- Oral Anticoagulation: on chronic Warfarin INR 3.6 today. HOLD Warfarin given severe anemia/GIB.
- [id number]: score at least 5 (Heart failure, HTN, age 75 or more, Vascular disease).
CKD - stable.
SSS s/p PPM - Medtronic, stable.
CIDP - receives IVIG per neurology.
Subjective: No CP
Laboratory Data
12/12/23 12/19/23 12/19/23
08:57 12:04 22:01
Hgb 5.7 L*
INR 2.11 3.60
BUN
Creatinine
12/20/23 12/20/23 12/20/23
05:03 05:03 05:03
Hgb 6.9 L* D
INR 1.64
BUN 71 H
Creatinine 1.1
12/20/23
07:40
Hgb Pending
INR
BUN
Creatinine
Generic Name Dose Route Start Last Admin
Trade Name Priyanka PRN Reason Stop Dose Admin
Midodrine 5 mg 12/20/23 08:00
Midodrine 5 Mg Tablet PO 01/17/24 07:59
BID@0800,1800 JANETT
Physical Exam
Vital Signs/Labs
Vital Signs
Temp Pulse Resp BP Pulse Ox
36.9 C 70 18 127/44 94
12/20/23 06:59 12/20/23 07:30 12/20/23 07:30 12/20/23 07:30 12/20/23 07:30
12/19/23 12/20/23 12/21/23
06:59 06:59 06:59
Actual Weight 176 lb 5.917 oz
12/20/23 14:00
12/20/23 05:03
PT 19.7 Sec (11.4-14.6) H 12/20/23 05:03
INR 1.64 12/20/23 05:03
LAB Results
12/19/23
22:05
Troponin I 0.015
Physical Exam
Constitutional: No acute distress
EENT: Anicteric and Moist mucous membranes
Cardiovascular: Rhythm & rate is regular, Pedal edema is absent and Systolic murmur absent
Respiratory: Respiratory effort normal
GI: Soft, Distention absent and Non tender
Neuro/Psych: Alert and Oriented
Data Reviewed
-
Date of Service: December 20, 2023
Labs: Other (Tele with )
[2023-12-20 07:59] LABS: Glucose - Point of Care 120 mg/dl (70-99)
[2023-12-20 08:32] LABS: Hemoglobin 6.6 g/dL (13.0-18.0)
[2023-12-20] MEDS: ProAmatine 5 MG PO (08:58)
[2023-12-20] MEDS: INVANZ 60 MG IV (08:59)
[2023-12-20] MEDS: NEURONTIN 300 MG PO ×3 (08:59→21:09)
--- NOTE | 2023-12-20 09:00 | W.PN.UPDATE ---
Update Note
Progress Note Update
pt with some increased bleeding overnight. Noted PRBC's and FFP given. INR 1.64 today. Plan for EGD and addition unit PRBC's. I updated nursing, hospitalist and . Pt and family agreeable to proceed.
[2023-12-20] MEDS: CALCIUM GLUCONATE 100 IV (09:39)
--- NOTE | 2023-12-20 10:46 | PTCARENOTE ---
Assumed care of patient at beginning of this shift from previous RN. Repeat H&H 6.05/09; Mireya Bashir and Dr Reed made aware. Patient with several bloody bms overnight: reported to be red and black, and one large bm this morning that burgundy and
black, liquid. Patient made NPO for add-on to scope per Mireya Bashir; reviewed po meds with her, which she stated was ok to take. One unit PRBCs ordered and currently infusing. Patient's Ca 6.9; calcium gluconate ordered and given. See worklist for
full assessment and vital signs.
[2023-12-20 12:03] LABS: Glucose - Point of Care 123 mg/dl (70-99)
--- NOTE | 2023-12-20 13:52 | W.PN.UPDATE ---
Update Note
Progress Note Update
s/p EGD
- No gross lesions in the entire esophagus.
- Z-line variable, 38 cm from the incisors.
- Small hiatal hernia.
- No gross lesions in the entire stomach.
- Non-obstructing non-bleeding duodenal ulcers with a visible vessel. There is no evidence of perforation. Injected. Treated with bipolar cautery.
- Normal second portion of the duodenum.
- No specimens collected.
Plan
- Give Protonix (pantoprazole): 8 mg/hr IV by continuous infusion.
- NPO.
- Check hemoglobin q 6 hours for one day.
- Continue to monitor in the ICU.
--- NOTE | 2023-12-20 14:13 | W.PN.HOSP.TC ---
Today's Communication/Plan
-
Monitor vital signs and see plan
Continue with PPI drip
GI following
Monitor hemoglobin
Transfuse as necessary
Assessment / Plan
Assessment / Plan
General:�Comfortable, Conversant
HEENT:�Anicteric and Moist mucous membranes
Respiratory:�Clear and Non Labored Respirations
Cardiac:�S1/S2 and Regular Rhythm
GI:�Soft and Tender (Mild throughout without rebound or guarding)
Rectal:�Hem Positive (Per ED Provider)
Musculoskeletal:�No Clubbing, No Cyanosis and No Edema
Skin:�Warm and Dry
Neuro:�Awake, Alert, Oriented and Nonfocal/grossly intact
Acute Blood Loss Anemia secondary to upper GI Bleed
overnight 12/19 with more dark stools with low hgb
Acute blood loss anemia secondary to above
s/p 5 total units prbc
EGD 12/20 with deudenal ulcer
cw PPI gtt
NPO
GI following
Hold Coumadin
Monitor INR
Recent Sepsis secondary to Empyema
-Continue Invanz through Jan 05
Coronary Artery Disease s/p CABG
-Hold aspirin due to GI Bleed
Hypokalemia
Repleted
Chronic Diastolic Heart Failure
-Hold ethacrynic acid
-Monitor Is&Os and Daily Weights
Paroxysmal Atrial Fibrillation s/p SHIRA clip and MAZE in Jul 2023
- Cardiology following
-Coumadin on hold due to GI Bleed
Hypotension
-Continue midodrine as prior to admission
Hyperlipidemia
-Hold atorvastatin while NPO
Diabetes Mellitus, Type II
-Monitor sugars and continue coverage insulin
-Hold Jardiance
CKD Stage III
-Creatinine at baseline
CIDP-Chronic Idiopathic Demyelinating Polyneuropathy
-Due to IVIG today, Dec 19
-Seen by neurology, per neurology IVIG is not urgent so can hold off
-Continue gabapentin
Hx Aortic Stenosis s/p Bioprosthetic Aortic Valve Replacement
DVT proph: SCDs
Code Status: Full Code
I spent a total of 53 minutes with the patient or on the floor. More than 50% of this time involved counseling and coordination of care.
Anticipated Discharge: > 48 hours
Subjective/Interval History
-
Date of Service: December 20, 2023
has some pain
Objective Data
-
Labs:
Laboratory Results
12/20/23 12/20/23 12/20/23
05:03 07:58 08:00
WBC 7.7
Hgb 6.9 L* D 6.6 L* Cancelled
Hct 19.8 L* 19.0 L* Cancelled
Plt Count 129 L D
PT 19.7 H
INR 1.64
Sodium 137
Potassium 3.8 D
Chloride 107
Carbon Dioxide 25
BUN 71 H
Creatinine 1.1
Glucose 152 H
Calcium 6.9 L*
12/20/23 12/20/23
14:00 15:00
WBC
Hgb Cancelled Pending
Hct Cancelled
Plt Count
PT
INR
Sodium
Potassium
Chloride
Carbon Dioxide
BUN
Creatinine
Glucose
Calcium
Vital Signs:
Vital Signs
Temp Pulse Resp BP Pulse Ox
97.6 F 70 19 146/52 100
12/20/23 13:06 12/20/23 13:06 12/20/23 13:06 12/20/23 13:06 12/20/23 13:06
I&O
12/19/23 12/20/23 12/21/23
06:59 06:59 06:59
Intake Total 4132 / 4132 410 / 410
Output Total 1350 / 1350
Balance 2782 / 2782 410 / 410
--- NOTE | 2023-12-20 14:34 | PTCARENOTE ---
Patient left for GI lab approximately 13:10; just returned. He is to remain NPO today per report; repeat H&H ordered for 21:00. PRBCs completed prior to going to GI lab.
--- NOTE | 2023-12-20 15:10 | CM ---
Addendum entered by Jacquelin Remy RN 12/20/23 17:13:
recontacted CM to say that they prefer [facility] as daughter Frances Hernandez (ph [phone]) works there in administration. Informed them will make referral once patient works with PT.
has decided she wants home infusion with [facility] and she assist the patient with Abx administration. Will need script for referral for home IV infusion.
Plan probable home with V[facility], with home IV Infusion.
Original Note:
Patient with HX CIDP on IVIG and recent admission for sepsis secondary to empyema with outpatient IV ertapenum via PICC, here with Dx Acute Blood Loss Anemia secondary to upper GI Bleed, s/p transfusions and EGD today.
Met with patient, Araseli & son Kyle; the patient and were familiar to this CM from the prior admission.
The patient resides with his in a 2 story house.
The patient was Independent/supervised for ADLs/ambulation with his RW, and supervised with stairs at home.
On the day prior to this admission the patient was unwell and weak.
DME - RW, SPC, w/c, transport chair
Prior [facility].
SNF - Prior [facility].
PCP - Scott Martinez
Pharmacy - [facility]
Patient & said they may want d/c to home with home IV infusion instead of going back to the Infusion Center, because he is weak. They are aware he would still need the infusion center for the IVIG,which occurs monthly. Explained to the
that a designated family member would need to assist with the IV at home. She will think about whether she feels comfortable learning home IV infusion and will let CM know.
would like patient to have [facility] for SN & PT at discharge.
Message to Dr Reed with request to please order PT Eval when you feel he is stable for OOB mobility.
Plan follow up after PT Eval.
Plan follow up with patient/ about resuming home infusion center for IV Abx vs having home IV infusion through [facility].
Plan probable home with [facility], with resumption outpatient IV Infusion Center vs home IV Infusion.
[2023-12-20 17:34] LABS: Glucose - Point of Care 109 mg/dl (70-99)
--- NOTE | 2023-12-20 18:13 | PTCARENOTE ---
BP 176/38; patient due for midodrine. Reviewed with Dr Reed who instructed to hold medication at this time.
[2023-12-20] MEDS: ProAmatine PO (18:14)
[2023-12-20 21:20] LABS: Hematocrit 21.8 % (39.0-52.0)
[2023-12-21] VITALS (24 sets, daily range): BP systolic 118–168; BP diastolic 29–61
[2023-12-21 00:09] LABS: Glucose - Point of Care 94 mg/dl (70-99)
--- NOTE | 2023-12-21 01:32 | PTCARENOTE ---
Assumed care of Pt from Day RN. Pt AAOX3. Pt color appears to be improved along with being more alert, not as drowsy. Repeat H%H 07/11.8! Pt has no complaints at this time, call acosta within reach. Assessment,care and vitals as charted.
[2023-12-21] MEDS: PROTONIX 100 IV ×3 (01:40→21:53)
[2023-12-21 05:07] LABS: % Basophils 0.3 % (0-2); % Eosinophils 3.5 % (0-6); % Lymphocytes 14.8 % (20.5-51.1); % Monocytes 7.3 % (1.7-9.3); % Neutrophils 73.1 % (42.2-75.2); Absolute Eosinophils 0.2 10^3/uL (0-0.7); Absolute Immature Granulocytes 0.1 10^3/uL (0-0.05); Absolute Monocytes 0.5 10^3/uL (0.1-0.6); Hemoglobin 7.6 g/dL (13.0-18.0); Mean Corp Hgb Conc. 34.5 g/dL (33.0-37.0); Mean Corpuscular Hgb 30.5 pg (27.0-31.0); Mean Corpuscular Volume 88.4 fL (80.0-94.0); Mean Platelet Volume 10.6 fL (7.4-10.4); Nucleated Red Blood Cells % 0.3 % (-); Platelet Count 134 10^3/uL (130-400); Red Blood Cell Count 2.49 10^6/uL (4.70-6.10); Red Cell Dist. Width 14.6 % (11.5-14.5); White Blood Cell Count 6.8 10^3/uL (4.8-10.8)
[2023-12-21 05:31] LABS: INR 1.42; PT 17.7 Sec (11.4-14.6)
[2023-12-21 05:40] LABS: ALT (SGPT) 34 U/L (0-50); AST (SGOT) 36 U/L (17-59); Albumin 1.9 g/dl (3.5-5.0); Alkaline Phosphatase 121 U/L (38-126); Blood Urea Nitrogen 50 mg/dl (9-20); Calcium 7.7 mg/dl (8.4-10.2); Carbon Dioxide 25 mmol/L (22-30); Chloride 111 mmol/L (98-107); Estimated Creatinine Clearance 69 ml/min; Glucose 94 mg/dl (70-99); Potassium 3.9 mmol/L (3.5-5.1); Sodium 139 mmol/L (135-145); Total Bilirubin 0.9 mg/dl (0.2-1.3); Total Protein 5.8 g/dl (6.3-8.2); eGFR > 60.00
[2023-12-21 06:02] LABS: Glucose - Point of Care 91 mg/dl (70-99)
--- NOTE | 2023-12-21 07:43 | PN.CDI ---
CDI
- -
CDI:
Physician Documentation Request
Admit Date: 12/19/23 15:21
Dear Doctor Derek,
Please review the following and provide your response in the progress notes.
Clinical Indicators:
PN, 12/20
#Acute Blood Loss Anemia secondary to upper GI Bleed
#...overnight 12/19 with more dark stools with low hgb
#Acute blood loss anemia secondary to above
#...s/p 5 total units prbc
#EGD 12/20 with deudenal ulcer
#Hold Coumadin
#Coronary Artery Disease s/p CABG
#...-Hold aspirin due to GI Bleed
Laboratory Tests
12/19/23 12/20/23 12/21/23
12:04 05:03 04:50
PT 36.4 H 19.7 H 17.7 H
Please clarify the relationship, if any, between these conditions:
Yes, GI bleed is enhanced by/related to/associated with/due to coumadin and aspirin.
No, GI bleed is not enhanced by/related to/associated with/due to coumadin and aspirin but it is due to ___. (Please specify)
Other
Use of terms such as suspected, likely, concern for, or probable (associated with a specific diagnosis that is being evaluated, monitored, or treated as if it exists) are acceptable and can be coded in the inpatient setting, when documented at the
time of discharge.
Thank you,
Fabby Stephens RN BSN CCDS
CDI Specialist
please contact via tiger text
Please use your independent medical judgment in providing your response.
--- NOTE | 2023-12-21 07:48 | PN.CDI ---
CDI
- -
CDI:
Physician Documentation Request
Admit Date: 12/19/23 15:21
Dear Doctor Derek,
Please review the following and provide your response in the progress notes.
Clinical Indicators:
PN, 12/20
#Paroxysmal Atrial Fibrillation s/p SHIRA clip and MAZE in Jul 2023
#...- Cardiology following
#...-Coumadin on hold due to GI Bleed
Cardiology, PN, 12/20
#Permanent atrial fibrillation
#- Left atrial MAZE/ SHIRA Exclusion (45mm Clip).
#- Oral Anticoagulation: on chronic Warfarin INR 3.6 today.
#...HOLD Warfarin given severe anemia/GIB.
Please clarify specificity regarding atrial fibrillation:
Permanent atrial fibrillation - when a decision has been made to accept the presence of AF and there is no further attempt to restore or maintain sinus rhythm
Paroxysmal atrial fibrillation - terminates spontaneously or with intervention within 7 days of onset
Other - please specify
Use of terms such as suspected, likely, concern for, or probable (associated with a specific diagnosis that is being evaluated, monitored, or treated as if it exists) are acceptable and can be coded in the inpatient setting, when documented at the
time of discharge.
Thank you,
Fabby Stephens RN BSN CCDS
CDI Specialist
please contact via tiger text
Please use your independent medical judgment in providing your response.
[2023-12-21] MEDS: ProAmatine PO ×2 (08:21→17:28)
[2023-12-21] MEDS: NEURONTIN 300 MG PO ×3 (08:21→21:53)
[2023-12-21] MEDS: INVANZ 60 MG IV (08:22)
--- NOTE | 2023-12-21 08:37 | W.PN.CD ---
Today's Communication / Plan
-
- No more bleeding
- Follow serial Hgb
- Holding Eliquis
- Plan for BRADLEY before discharge.
Impression / Plan
-
78 yo male with PMH of permanent Afib on warfarin, AVR with a 25 mm bioprosthetic aortic valve and coronary artery bypass graft x3 (GRIMES�LAD, SVG�OM and RCA) with maze, and 45 mm atrial clip 07/2023.
Anemia
- acute, symptomatic.
- s/p EGD
- hold AC
- hold ACEi
- Hb is now 7.6 - somewhat stable with 8.0 from yesterday
- Needed multiple units PRBC
- not bleeding anymore
CAD S/P CABG x3 by Dr. Benjamin 07/26/23 - stable.
- GRIMES to LAD, Ao to RSVG to OM1, Ao to RSVG to MARNIE, B/L LE EV.
- Denies CP.
- The BRADLEY was reviewed with CTS. The SHIRA clip was successful in eliminating SHIRA intraop. Using Watchman date to extrapolate this situation would recommend a BRADLEY prior to discharge to assess the residual SHIRA and if none present, can likely go off
the warfarin. ASA 81 mg Alone at discharge.
- BRADLEY before discharge.
S/P AVR 07/26/23, bio (25mm Inspiris) - Echo 08/10/23 - 60-65%, stable AVR peak/mean gradients 10/4 mmHg no AR, no change.
Permanent atrial fibrillation
- Left atrial MAZE/ SHIRA Exclusion (45mm Clip).
- Oral Anticoagulation: on chronic Warfarin. HOLD Warfarin given severe anemia/GIB.
- [id number]: score at least 5 (Heart failure, HTN, age 75 or more, Vascular disease).
CKD - stable.
SSS s/p PPM - Medtronic, stable.
CIDP - receives IVIG per neurology.
Subjective: No CP
Laboratory Data
12/12/23 12/19/23 12/19/23
08:57 12:04 22:01
Hgb 5.7 L*
INR 2.11 3.60
BUN
Creatinine
12/20/23 12/20/23 12/20/23
05:03 05:03 05:03
Hgb 6.9 L* D
INR 1.64
BUN 71 H
Creatinine 1.1
12/20/23
07:40
Hgb Pending
INR
BUN
Creatinine
Generic Name Dose Route Start Last Admin
Trade Name Freq PRN Reason Stop Dose Admin
Midodrine 5 mg 12/20/23 08:00
Midodrine 5 Mg Tablet PO 01/17/24 07:59
BID@0800,1800 JANETT
Physical Exam
Vital Signs/Labs
Vital Signs
Temp Pulse Resp BP Pulse Ox
98.3 F 78 25 168/46 94
12/20/23 23:06 12/21/23 05:14 12/21/23 05:14 12/21/23 08:21 12/21/23 04:00
12/20/23 12/21/23 12/22/23
06:59 06:59 06:59
Actual Weight 81.6 kg 80.2 kg
12/21/23 04:50
12/21/23 04:50
PT 17.7 Sec (11.4-14.6) H 12/21/23 04:50
INR 1.42 12/21/23 04:50
LAB Results
12/19/23
22:05
Troponin I 0.015
Physical Exam
Constitutional: No acute distress and Comfortable
EENT: Anicteric and Moist mucous membranes
Cardiovascular: Rhythm & rate is regular, Pedal edema is absent, JVD pressure is normal and Systolic murmur absent
Respiratory: Respiratory effort normal, Lungs clear to auscul. and Wheeze Absent
GI: Soft, Non tender and Normal bowel sounds
Neuro/Psych: Alert, Oriented, AO x 3 and Motor deficits absent
Data Reviewed
-
Date of Service: December 21, 2023
Medical Decision Making: Reviewed Test Results, Independent Historian Assessment and Review of Case with other Provider
EKG: Tracing Personally Visualized and interpreted
Echo: Report Reviewed by me
Labs: Labs Reviewed by me
Old Records: Reviewed
--- NOTE | 2023-12-21 10:01 | W.PN.GI.CBS2 ---
Addendum entered and electronically signed by Autumn Arevalo MD 12/21/23 16:43:
I saw and examined the patient.
The SPA RECEPTIONIST or PA's note was reviewed and I agree with the note.
Comment: Patient currently doing well without complaints. Had small dark bowel movement this morning but nothing significant.
Tolerating full liquid diet.
Hemoglobin seems to be stable, okay to continue PPI drip for today and transition to PO twice daily in AM.
If continues to do well, okay to start low residue diet in the morning.
Okay to resume anticoagulation /2.
Original Note:
Today's Communication / Plan
-
s/p EGD with DU with visible vessel with treatment
hbg 7.6 today BUN tending down cont to follow
INR 1.42 s/p reversal ok to resume AC 2/2
appreciate cards eval
warfarin hold� for cards eval
BP now improved with hypotension in ER
LFT's normalized
cont PPI gtt transition to BID in AM
clear breakfast then full liquid lunch -if tolerating consider cardiac diet later today
will follow
Assessment / Plan
-
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
prostatitis, cellulitis, anemia, pleural effusions, acute renal failure/CKD with� recent admission with sepsis and ANI with left sided effusion and empyema. � During admission pt had GI evaluation in early November for increased LFT's with concern
for infection, medication vs other.� Pt was discharged home with IV abx with Invanz and now returns with anemia and black stools in ER.� He was due for Invanz and IVIG for hx CIPD but noted with anemia and sent to ER with hypotension. � On
admission hbg was 6.3 down from 8.4 on 12/12. BUN is� 57 up from 30 on 12/12 and� INR 3.6.� No hx EGD and last colonoscopy 2021 diverticulum in sigmoid. Pt also with some mild LFT elevation with bili 0.6, AST 61, alt 59, alk phos 205.�12/20 EGD
completed with DU with visible vessesl with treatment.
12/20 EGD � salguti - No gross lesions in the entire esophagus.small HH, Non-obstructing non-bleeding duodenal ulcers with a visible vessel. There is no evidence of perforation. injected and treated with bipolar cautery
Impression:
-UGI bleed with DU with visible vessel
- acute blood loss anemia
-recent sepsis with� empyema with current OP Abx with Invanz
-increased LFT's normalized 12/21
-afib on coumadin prior to admission
Other Dx:
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
with bioprosthetic AVR
hx Maze, SHIRA clip
PFO
CAD with prior CABG
DM
RLS, prostatitis
CKD stage III
PLAN:
s/p EGD with DU with visible vessel with treatment
hbg 7.6 today BUN tending down cont to follow
INR 1.42 s/p reversal ok to resume AC 2/
appreciate cards eval
BP now improved with noted hypotension in ER
warfarin hold� for cards eval
LFT's normalized
cont PPI gtt transition to BID in AM
clear breakfast then full liquid lunch -if tolerating consider cardiac diet later today
will follow
Subjective
Subjective
Date of Service: December 21, 2023
12/20 burgundy loose stool no stools overnigth, remains NPO -- feeling well
Objective
Data Reviewed
Laboratory Data:
Laboratory Results
12/21/23 04:50
Laboratory Results
PT 17.7 Sec (11.4-14.6) H 12/21/23 04:50
INR 1.42 12/21/23 04:50
Total Bilirubin 0.9 mg/dl (0.2-1.3) 12/21/23 04:50
AST 36 U/L (17-59) 12/21/23 04:50
ALT 34 U/L (0-50) 12/21/23 04:50
Alkaline Phosphatase 121 U/L (38-126) 12/21/23 04:50
Vital Signs and I&O:
Vital Signs
Temp Pulse Resp BP Pulse Ox
97.8 F 78 25 168/46 94
12/21/23 07:30 12/21/23 05:14 12/21/23 05:14 12/21/23 08:21 12/21/23 04:00
I&O
12/20/23 12/21/23 12/22/23
06:59 06:59 06:59
Intake Total 4382 / 4382 590 / 590
Output Total 1350 / 1350 2300 / 2300
Balance 3032 / 3032 -1710 / -1710
Physical Exam
Physical Exam
HEENT: Anicteric and Moist mucous membranes
Cardiology: Normal Sinus Rhythm
Pulmonary: Clear
GI: Soft, Non Distended and Non Tender
Extremities: No Edema
Neuro: Non Focal
[2023-12-21 11:29] LABS: Glucose - Point of Care 92 mg/dl (70-99)
--- NOTE | 2023-12-21 12:40 | W.PN.HOSP.TC ---
Today's Communication/Plan
-
Monitor vital signs see plan
PPI
Clears for now
GI following
Monitor hemoglobin
PT/OT
restart coumadin and aspirin when okay with GI
cw abx
Assessment / Plan
Assessment / Plan
General:�Comfortable, Conversant
HEENT:�Anicteric and Moist mucous membranes
Respiratory:�Clear and Non Labored Respirations
Cardiac:�S1/S2 and Regular Rhythm
GI:�Soft and Tender (Mild throughout without rebound or guarding)
Rectal:�Hem Positive (Per ED Provider)
Musculoskeletal:�No Clubbing, No Cyanosis and No Edema
Skin:�Warm and Dry
Neuro:�Awake, Alert, Oriented and Nonfocal/grossly intact
Acute Blood Loss Anemia secondary to upper GI Bleed
overnight 12/19 with more dark stools with low hgb
Acute blood loss anemia secondary to above; GI bleed is likely exacerbated by Coumadin and aspirin
s/p 5 total units prbc
EGD 12/20 with duedenal ulcer with visible vessel with treatment
Monitor hemoglobin
cw PPI gtt
Started on clears by GI
GI following
Hold Coumadin; restart when okay with GI and cardiology
Monitor INR
Recent Sepsis secondary to Empyema
-Continue Invanz through Jan 05
family now wants home abx infusion; appreciate ID providing new script
Coronary Artery Disease s/p CABG
-Hold aspirin due to GI Bleed, restart when okay with GI and cardiology
Hypokalemia
Repleted
Chronic Diastolic Heart Failure
-Hold ethacrynic acid
-Monitor Is&Os and Daily Weights
Permanent Atrial Fibrillation s/p SHIRA clip and MAZE in Jul 2023
- Cardiology following
-Coumadin on hold due to GI Bleed
Hypotension
-Continue midodrine as prior to admission
Hyperlipidemia
Diabetes Mellitus, Type II
-Monitor sugars and continue coverage insulin
-Hold Jardiance
CKD Stage III
-Creatinine at baseline
CIDP-Chronic Idiopathic Demyelinating Polyneuropathy
-Due to IVIG today, Dec 19
-Seen by neurology, per neurology IVIG is not urgent so can hold off
-Continue gabapentin
Hx Aortic Stenosis s/p Bioprosthetic Aortic Valve Replacement
DVT proph: SCDs
Code Status: Full Code
I spent a total of 52 minutes with the patient or on the floor. More than 50% of this time involved counseling and coordination of care.
Anticipated Discharge: > 48 hours
Subjective/Interval History
-
Date of Service: December 21, 2023
denies pain
Objective Data
-
Labs:
Laboratory Results
12/21/23 12/21/23 12/21/23
04:50 11:00 19:00
WBC 6.8
Hgb 7.6 L Pending Pending
Hct 22.0 L Pending Pending
Plt Count 134
PT 17.7 H
INR 1.42
Sodium 139
Potassium 3.9
Chloride 111 H
Carbon Dioxide 25
BUN 50 H
Creatinine 1.0
Glucose 94
Calcium 7.7 L
Total Bilirubin 0.9
AST 36
ALT 34
Alkaline Phosphatase 121
Vital Signs:
Vital Signs
Temp Pulse Resp BP Pulse Ox
97.7 F 70 16 148/61 99
12/21/23 11:44 12/21/23 11:00 12/21/23 11:00 12/21/23 11:00 12/21/23 11:00
I&O
12/20/23 12/21/23 12/22/23
06:59 06:59 06:59
Intake Total 4382 / 4382 590 / 590
Output Total 1350 / 1350 2300 / 2300
Balance 3032 / 3032 -1710 / -1710
--- NOTE | 2023-12-21 13:37 | CM ---
Patient with HX CIDP on IVIG and recent admission for sepsis secondary to empyema with outpatient IV ertapenum via PICC, here with Dx Acute Blood Loss Anemia secondary to upper GI Bleed, s/p transfusions and EGD. Room air. Receiving IV ertapenum.
PT & OT Evals pending.
Message to Dr Evans requesting script for IV ertapenum- script in chart retrieved.
Spoke with Giuliana, [facility]; they will review the referral and let CM know if they can accept or if their sister agency in [place] will see the patient.
Met with patient, Araseli & son Kyle; answered their questions/concerns about d/c plans. Informed them that referral was made to [facility]. Re-explained again that CM will make referral to [facility] once PT/OT Eval notes are available.
Plan follow up after PT/OT Evals and make referral to [facility].
Plan home with [facility], with home IV Infusion, possibly through [facility].
[2023-12-21 14:52] LABS: Glucose - Point of Care 193 mg/dl (70-99)
[2023-12-21] MEDS: NOVOLOG FLEXPEN-LOW RESISTANCE 1 UNITS SC (15:43)
[2023-12-21] MEDS: NOVOLOG FLEXPEN-LOW RESISTANCE 3 UNITS SC (17:29)
[2023-12-21 17:37] LABS: Glucose - Point of Care 255 mg/dl (70-99)
[2023-12-21 18:20] LABS: Hematocrit 25.5 % (39.0-52.0); Hemoglobin 8.6 g/dL (13.0-18.0)
[2023-12-21 22:10] LABS: Glucose - Point of Care 169 mg/dl (70-99)
[2023-12-22] VITALS (27 sets, daily range): BP systolic 106–172; BP diastolic 26–77; PULSE 73; O2SAT 98; BMI 24.2
--- NOTE | 2023-12-22 00:48 | PTCARENOTE ---
Received pt oriented and drowsy, says he is tired but feeling much better than yesterday. Passing flatus and without complaints of pain or nausea. Color is pink and skin is warm and dry. Turns himself in bed and using condom catheter.
[2023-12-22 05:14] LABS: % Basophils 0.2 % (0-2); % Eosinophils 5.6 % (0-6); % Immature Granulocytes 1.2 % (0-0.5); % Monocytes 7.4 % (1.7-9.3); % Neutrophils 67.6 % (42.2-75.2); Absolute Eosinophils 0.3 10^3/uL (0-0.7); Absolute Immature Granulocytes 0.1 10^3/uL (0-0.05); Absolute Lymphocytes 1.1 10^3/uL (1.2-3.4); Absolute Monocytes 0.5 10^3/uL (0.1-0.6); Absolute Neutrophils 4.1 10^3/uL (1.4-6.5); Hematocrit 22.1 % (39.0-52.0); Hemoglobin 7.4 g/dL (13.0-18.0); Mean Corp Hgb Conc. 33.5 g/dL (33.0-37.0); Mean Corpuscular Hgb 30.7 pg (27.0-31.0); Mean Corpuscular Volume 91.7 fL (80.0-94.0); Mean Platelet Volume 10.9 fL (7.4-10.4); Nucleated Red Blood Cells % 0 % (-); Platelet Count 141 10^3/uL (130-400); Red Blood Cell Count 2.41 10^6/uL (4.70-6.10); White Blood Cell Count 6.1 10^3/uL (4.8-10.8)
[2023-12-22 05:21] LABS: INR 1.41; PT 17.3 Sec (11.4-14.6)
[2023-12-22 05:51] LABS: ALT (SGPT) 41 U/L (0-50); AST (SGOT) 53 U/L (17-59); Alkaline Phosphatase 147 U/L (38-126); Blood Urea Nitrogen 35 mg/dl (9-20); Calcium 7.3 mg/dl (8.4-10.2); Carbon Dioxide 26 mmol/L (22-30); Chloride 110 mmol/L (98-107); Estimated Creatinine Clearance 69 ml/min; Glucose 100 mg/dl (70-99); Potassium 3.9 mmol/L (3.5-5.1); Sodium 135 mmol/L (135-145); Total Bilirubin 0.7 mg/dl (0.2-1.3); Total Protein 6.2 g/dl (6.3-8.2); eGFR > 60.00
[2023-12-22 07:48] LABS: Glucose - Point of Care 98 mg/dl (70-99)
[2023-12-22] MEDS: PROTONIX 100 IV (08:17)
[2023-12-22] MEDS: NEURONTIN 300 MG PO ×3 (08:17→21:34)
[2023-12-22] MEDS: INVANZ 60 MG IV (08:18)
[2023-12-22] MEDS: ProAmatine PO ×2 (08:20→17:07)
[2023-12-22] MEDS: NOVOLOG FLEXPEN-LOW RESISTANCE SC (08:37)
--- NOTE | 2023-12-22 10:30 | W.PN.CD ---
Today's Communication / Plan
-
- continue to hold anticoagulation
- BRADLEY in AM
- If no leak then can start ASA without chronic anticoagulation.
Impression / Plan
-
78 yo male with PMH of permanent Afib on warfarin, AVR with a 25 mm bioprosthetic aortic valve and coronary artery bypass graft x3 (GRIMES�LAD, SVG�OM and RCA) with maze, and 45 mm atrial clip 07/2023.
Anemia
- acute, symptomatic.
- s/p EGD
- hold AC - GI is ok restarting on 2/2 - Hgb trending down. Continue to hold.
- hold ACEi
- Hb is now 7.6 - somewhat stable with 8.0 from yesterday
- Needed multiple units PRBC
- not bleeding anymore
CAD S/P CABG x3 by Dr. Benjamin 07/26/23 - stable.
- GRIMES to LAD, Ao to RSVG to OM1, Ao to RSVG to MARNIE, B/L LE EVH.
- Denies CP.
- The BRADLEY was reviewed with CTS. The SHIRA clip was successful in eliminating SHIRA intraop. Using Watchman date to extrapolate this situation would recommend a BRADLEY prior to discharge to assess the residual SHIRA and if none present, can likely go off
the warfarin. ASA 81 mg Alone at discharge.
- BRADLEY before discharge - Likely tomorrow. - Rule out residual SHIRA and any leak through the SHIRA clip
- NPO after midnight
S/P AVR 07/26/23, bio (25mm Inspiris) - Echo 08/10/23 - 60-65%, stable AVR peak/mean gradients 10/4 mmHg no AR, no change.
Permanent atrial fibrillation
- Left atrial MAZE/ SHIRA Exclusion (45mm Clip).
- Oral Anticoagulation: on chronic Warfarin. HOLD Warfarin given severe anemia/GIB.
- [id number]: score at least 5 (Heart failure, HTN, age 75 or more, Vascular disease).
CKD - stable.
SSS s/p PPM - Medtronic, stable.
CIDP - receives IVIG per neurology.
Subjective: No CP
Physical Exam
Vital Signs/Labs
Vital Signs
Temp Pulse Resp BP Pulse Ox
98.3 F 73 17 143/67 96
12/22/23 07:26 12/22/23 08:20 12/22/23 07:00 12/22/23 08:20 12/22/23 07:00
12/21/23 12/22/23 12/23/23
06:59 06:59 06:59
Actual Weight 80.2 kg 80.9 kg
12/22/23 04:51
12/22/23 04:51
PT 17.3 Sec (11.4-14.6) H 12/22/23 04:51
INR 1.41 12/22/23 04:51
LAB Results
12/19/23
22:05
Troponin I 0.015
Physical Exam
Constitutional: No acute distress and Comfortable
EENT: Anicteric and Moist mucous membranes
Cardiovascular: JVD pressure is normal, Systolic murmur absent and Rhythm/rate is irregular
Respiratory: Respiratory effort normal and Lungs clear to auscul.
Data Reviewed
-
Date of Service: December 22, 2023
EKG: Tracing Personally Visualized and interpreted
Echo: Report Reviewed by me
Labs: Labs Reviewed by me
Old Records: Reviewed
--- NOTE | 2023-12-22 11:58 | W.PN.GI.CBS2 ---
Today's Communication / Plan
-
PLAN:
s/p EGD with DU with visible vessel with treatment
hbg 7.4 today BUN tending down ,no active bleeding. Monitor and if H/H drops <7.0, needs a unit of PRBC
ok to resume AC 2/2
Protonix 40mg po bid for 8 weeks and once day thereafter.
Monitor BM for any black stool or maroon stool.
Avoid NSAID's
can give IV iron infusion
LFT's normalized
will sign off,pls call back if needed
Assessment / Plan
-
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
prostatitis, cellulitis, anemia, pleural effusions, acute renal failure/CKD with� recent admission with sepsis and ANI with left sided effusion and empyema. � During admission pt had GI evaluation in early November for increased LFT's with concern
for infection, medication vs other.� Pt was discharged home with IV abx with Invanz and now returns with anemia and black stools in ER.� He was due for Invanz and IVIG for hx CIPD but noted with anemia and sent to ER with hypotension. � On
admission hbg was 6.3 down from 8.4 on 12/12. BUN is� 57 up from 30 on 12/12 and� INR 3.6.� No hx EGD and last colonoscopy 2021 diverticulum in sigmoid. Pt also with some mild LFT elevation with bili 0.6, AST 61, alt 59, alk phos 205.�12/20 EGD
completed with DU with visible vessesl with treatment.
12/20 EGD � salguti - No gross lesions in the entire esophagus.small HH, Non-obstructing non-bleeding duodenal ulcers with a visible vessel. There is no evidence of perforation. injected and treated with bipolar cautery
Impression:
-UGI bleed with DU with visible vessel
- acute blood loss anemia
-recent sepsis with� empyema with current OP Abx with Invanz
-increased LFT's normalized 12/21
-afib on coumadin prior to admission
Other Dx:
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
with bioprosthetic AVR
hx Maze, SHIRA clip
PFO
CAD with prior CABG
DM
RLS, prostatitis
CKD stage III
PLAN:
s/p EGD with DU with visible vessel with treatment
hbg 7.4 today BUN tending down ,no active bleeding. Monitor and if H/H drops <7.0, needs a unit of PRBC
ok to resume AC /
Protonix 40mg po bid for 8 weeks and once day thereafter.
Monitor BM for any black stool or maroon stool.
Avoid NSAID's
LFT's normalized
will sign off,pls call back if needed
Subjective
Subjective
Date of Service: December 22, 2023
No complaints, brown stool last night, otherwose no symptoms
Objective
Data Reviewed
Laboratory Data:
Laboratory Results
12/22/23 04:51
12/22/23 04:51
Laboratory Results
PT 17.3 Sec (11.4-14.6) H 12/22/23 04:51
INR 1.41 12/22/23 04:51
Total Bilirubin 0.7 mg/dl (0.2-1.3) 12/22/23 04:51
AST 53 U/L (17-59) 12/22/23 04:51
ALT 41 U/L (0-50) 12/22/23 04:51
Alkaline Phosphatase 147 U/L (38-126) H 12/22/23 04:51
Vital Signs and I&O:
Vital Signs
Temp Pulse Resp BP Pulse Ox
97.5 F 73 17 143/67 98
12/22/23 11:00 12/22/23 08:20 12/22/23 07:00 12/22/23 08:20 12/22/23 10:16
I&O
12/21/23 12/22/23 12/23/23
06:59 06:59 06:59
Intake Total 590 / 590 120 / 120
Output Total 2300 / 2300 675 / 675
Balance -1710 / -1710 -555 / -555
Physical Exam
Physical Exam
GI: Soft, Non Distended, Non Tender and Normal Bowel Sounds
[2023-12-22] MEDS: PROTONIX 40 MG PO ×2 (12:09→19:55)
[2023-12-22] MEDS: NOVOLOG FLEXPEN-LOW RESISTANCE 1 UNITS SC ×2 (12:30→17:11)
[2023-12-22 12:31] LABS: Glucose - Point of Care 186 mg/dl (70-99)
--- NOTE | 2023-12-22 12:45 | W.PN.HOSP.TC ---
Today's Communication/Plan
-
Monitor vital signs and see plan
Holding Coumadin currently
Per cardiology note hopefully can come off Coumadin
BRADLEY per cardiology
PPI twice daily
Repeat H&H later today
Assessment / Plan
Assessment / Plan
General:�Comfortable, Conversant
HEENT:�Anicteric and Moist mucous membranes
Respiratory:�Clear and Non Labored Respirations
Cardiac:�S1/S2 and Regular Rhythm
GI:�Soft and Tender (Mild throughout without rebound or guarding)
Rectal:�Hem Positive (Per ED Provider)
Musculoskeletal:�No Clubbing, No Cyanosis and No Edema
Skin:�Warm and Dry
Neuro:�Awake, Alert, Oriented and Nonfocal/grossly intact
Acute Blood Loss Anemia secondary to upper GI Bleed
overnight 12/19 with more dark stools with low hgb
Acute blood loss anemia secondary to above; GI bleed is likely exacerbated by Coumadin and aspirin
s/p 5 total units prbc
EGD 12/20 with duedenal ulcer with visible vessel with treatment
Monitor hemoglobin
PPI drip changed to p.o. PPI twice daily
Transfuse for hemoglobin less than 7
Tolerating diet.
GI following
Hold Coumadin; restart 2/2 per gastroenterology
Monitor INR
Recent Sepsis secondary to Empyema
-Continue Invanz through Jan 05
family now wants home abx infusion; appreciate ID providing new script
Coronary Artery Disease s/p CABG
-Hold aspirin due to GI Bleed, restart when okay with GI and cardiology
Hypokalemia
Repleted
Chronic Diastolic Heart Failure
-Hold ethacrynic acid
-Monitor Is&Os and Daily Weights
Permanent Atrial Fibrillation s/p SHIRA clip and MAZE in Jul 2023
- Cardiology following
-Coumadin on hold due to GI Bleed
per cardiology BRADLEY prior to dc and hopeful that can come off warfarin
Hypotension
-Continue midodrine as prior to admission
Hyperlipidemia
Diabetes Mellitus, Type II
-Monitor sugars and continue coverage insulin
-Hold Jardiance
CKD Stage III
-Creatinine at baseline
CIDP-Chronic Idiopathic Demyelinating Polyneuropathy
-Due to IVIG today, Dec 19
-Seen by neurology, per neurology IVIG is not urgent so can hold off
-Continue gabapentin
Hx Aortic Stenosis s/p Bioprosthetic Aortic Valve Replacement
DVT proph: SCDs
Code Status: Full Code
I spent a total of 53 minutes with the patient or on the floor. More than 50% of this time involved counseling and coordination of care.
Anticipated Discharge: 24 - 48 hours
Subjective/Interval History
-
Date of Service: December 22, 2023
Denies pain
Objective Data
-
Labs:
Laboratory Results
12/22/23
04:51
WBC 6.1
Hgb 7.4 L
Hct 22.1 L
Plt Count 141
PT 17.3 H
INR 1.41
Sodium 135
Potassium 3.9
Chloride 110 H
Carbon Dioxide 26
BUN 35 H
Creatinine 1.0
Glucose 100 H
Calcium 7.3 L
Total Bilirubin 0.7
AST 53
ALT 41
Alkaline Phosphatase 147 H
Vital Signs:
Vital Signs
Temp Pulse Resp BP Pulse Ox
97.5 F 73 17 143/67 98
12/22/23 11:00 12/22/23 08:20 12/22/23 07:00 12/22/23 08:20 12/22/23 10:16
I&O
12/21/23 12/22/23 12/23/23
06:59 06:59 06:59
Intake Total 590 / 590 120 / 120
Output Total 2300 / 2300 675 / 675
Balance -1710 / -1710 -555 / -555
--- NOTE | 2023-12-22 13:22 | CM ---
Patient with HX CIDP on IVIG and recent admission for sepsis secondary to empyema with outpatient IV ertapenum via PICC, here with Dx Acute Blood Loss Anemia secondary to upper GI Bleed, s/p transfusions and EGD. Room air. Receiving IV ertapenum.
PT & OT recommend HH.
Message from Dr Rede; hopefully d/c tomorrow or day after once things are better and his Hgb stable, he will be getting BRADLEY before dc so not sure when will that happen
Spoke with patient's daughter Frances (cell [phone]); she works for [employer] in [place] and has a relationship with [facility] through work. She works with Dionne, nurse deputy administrator at [employer]- [phone].
Spoke with Dionne, Nurse [employer], [facility] (cell [phone], fax [phone]); they will have a nurse available on Sat or Sun for a teaching visit. She was made aware of 8am ertapenum dose here. Their Intake nurse Libby will be faxing CM a
Face to Face Form that needs to be completed. Faxed patient demographic sheet, Abx order sheet with labwork & PICC line insertion info. [employer] referral updated with PT/OT [place].
Spoke with Giuliana, nurse [facility]; she met with the patient, & son today. Giuliana provided benefits for home infusion and did the teaching visit today with the patient, & son. [facility] cannot dispense the Abx on Tuesday and that needs
to be done on day of discharge for a Medicare patient, so he could go home Tue, Tue or Tuesday but not Tuesday---> Dr Reed notified.
Giuliana asked for clarification from Dr Evans re; patient's heparin allergy---> per Dr Evans, the patient tolerates heparin and received it in a recent cath. Pharmacy reports that they will be updating the allergy list in the chart.
Plan home with [facility] and [facility] for home IV Infusion.
[2023-12-22] MEDS: FERRLECIT 110 MG IV (13:33)
[2023-12-22 17:12] LABS: Glucose - Point of Care 150 mg/dl (70-99)
--- NOTE | 2023-12-22 17:52 | PTCARENOTE ---
Assumed care of patient at beginning of this shift from previous RN. Patient advanced to low residue diet and tolerated without issue. Worked with PT/OT and ambulated in the halls; he then took another walk with RN and tolerated activity. Family at
bedside. Patient NPO after MN for BRADLEY; currently remains 100% vpaced. See worklist for full assessment and vital signs; see MAR for med administration
[2023-12-22 21:27] LABS: Glucose - Point of Care 190 mg/dl (70-99)
[2023-12-22 21:35] LABS: Hematocrit 20.9 % (39.0-52.0)
--- NOTE | 2023-12-22 22:23 | PTCARENOTE ---
Pt's H+H reported as a critical value. Hgb 7.0 Hct 20.9 results TT to KERRY Shane @ 21:53. No further orders given at this time. Pt has no GI complaints and has not had any BM's this shift.
[2023-12-23] VITALS (34 sets, daily range): BP systolic 91–157; BP diastolic 35–94; BMI 24.7
[2023-12-23 05:40] LABS: % Basophils 0.3 % (0-2); % Eosinophils 4.8 % (0-6); % Immature Granulocytes 1.1 % (0-0.5); % Lymphocytes 17.4 % (20.5-51.1); % Neutrophils 68.4 % (42.2-75.2); Absolute Eosinophils 0.3 10^3/uL (0-0.7); Absolute Immature Granulocytes 0.1 10^3/uL (0-0.05); Absolute Lymphocytes 1.2 10^3/uL (1.2-3.4); Absolute Monocytes 0.5 10^3/uL (0.1-0.6); Absolute Neutrophils 4.6 10^3/uL (1.4-6.5); Mean Corp Hgb Conc. 33.2 g/dL (33.0-37.0); Mean Corpuscular Hgb 31.1 pg (27.0-31.0); Mean Corpuscular Volume 93.7 fL (80.0-94.0); Mean Platelet Volume 11.1 fL (7.4-10.4); Nucleated Red Blood Cells % 0 % (-); Platelet Count 133 10^3/uL (130-400); Red Blood Cell Count 2.22 10^6/uL (4.70-6.10); Red Cell Dist. Width 16.1 % (11.5-14.5); White Blood Cell Count 6.7 10^3/uL (4.8-10.8)
[2023-12-23 05:44] LABS: PT 17.3 Sec (11.4-14.6)
[2023-12-23 06:12] LABS: ALT (SGPT) 53 U/L (0-50); AST (SGOT) 60 U/L (17-59); Albumin 1.8 g/dl (3.5-5.0); Alkaline Phosphatase 166 U/L (38-126); Blood Urea Nitrogen 35 mg/dl (9-20); Calcium 7.3 mg/dl (8.4-10.2); Carbon Dioxide 25 mmol/L (22-30); Chloride 105 mmol/L (98-107); Estimated Creatinine Clearance 57 ml/min; Glucose 124 mg/dl (70-99); Potassium 3.9 mmol/L (3.5-5.1); Sodium 135 mmol/L (135-145); Total Bilirubin 0.5 mg/dl (0.2-1.3); eGFR > 60.00
[2023-12-23 06:25] LABS: Hematocrit 20.8 % (39.0-52.0); Hemoglobin 6.9 g/dL (13.0-18.0)
--- NOTE | 2023-12-23 07:39 | PTCARENOTE ---
Pt's Hgb reported as 6.9 and TT to C[employer]ER C[employer] ASSOCIATE and orders written for pt to receive PRBC's. Needs Type and Cross.
--- NOTE | 2023-12-23 07:43 | W.PN.CD ---
Today's Communication / Plan
-
- Hb 6.9 today. Holding AC. I would transfuse
- no BRADLEY - see discussion below
- resume AC in AM if Hb OK
Impression / Plan
-
78 yo male with PMH of permanent Afib on warfarin, AVR with a 25 mm bioprosthetic aortic valve and coronary artery bypass graft x3 (GRIMES�LAD, SVG�OM and RCA) with maze, and 45 mm atrial clip 07/2023.
Anemia
- Hb 6.9 today. Holding AC
- hold ACEi
- I would transfuse
- restart AC in AM if Hb up appropriately
- I discussed stopping warfarin and relying on SHIRA clip for coverage. He asked many appropriate questions. He was concerned that this strategy has not been studied formally (although it does make clinical sense) and would rather resume warfarin. I
explained the risks of recurrent bleed balance against the risk of possible stroke and he seemed to understand.
CAD S/P CABG x3 by Dr. Benjamin 07/26/23 - stable.
- GRIMES to LAD, Ao to RSVG to OM1, Ao to RSVG to MARNIE, B/L [facility].
- transfuse as above
S/P AVR 07/26/23, bio (25mm Inspiris) - Echo 08/10/23 - 60-65%, stable AVR peak/mean gradients 10/4 mmHg no AR, no change.
Permanent atrial fibrillation
- Left atrial MAZE/ SHIRA Exclusion (45mm Clip).
- Oral Anticoagulation: on chronic Warfarin. HOLD Warfarin given severe anemia/GIB.
- [id number]: score at least 5 (Heart failure, HTN, age 75 or more, Vascular disease).
CKD - stable.
SSS s/p PPM - Medtronic, stable.
CIDP - receives IVIG per neurology.
Subjective: No CP, palps, or dyspnea
Physical Exam
Vital Signs/Labs
Vital Signs
Temp Pulse Resp BP Pulse Ox
37.4 C 73 20 136/35 93
12/23/23 03:52 12/23/23 04:00 12/23/23 04:00 12/23/23 04:00 12/23/23 04:00
12/22/23 12/23/23 12/24/23
06:59 06:59 06:59
Actual Weight 178 lb 5.663 oz 181 lb 10.574 oz
12/23/23 05:19
12/23/23 05:19
PT 17.3 Sec (11.4-14.6) H 12/23/23 05:19
INR 1.40 12/23/23 05:19
Physical Exam
Constitutional: No acute distress
EENT: Anicteric and Moist mucous membranes
Cardiovascular: Rhythm & rate is regular, Systolic murmur absent and Diastolic murmur absent
Respiratory: Respiratory effort normal, Lungs clear to auscul. and Rhonchi Absent
GI: Soft, Distention absent and Normal bowel sounds
Neuro/Psych: Alert
Data Reviewed
-
Date of Service: December 23, 2023
[2023-12-23] MEDS: NOVOLOG FLEXPEN-LOW RESISTANCE SC ×3 (08:17→18:05)
[2023-12-23] MEDS: ProAmatine 5 MG PO ×2 (08:18→18:05)
[2023-12-23] MEDS: NEURONTIN 300 MG PO ×3 (08:18→21:32)
[2023-12-23] MEDS: PROTONIX 40 MG PO ×2 (08:18→19:37)
[2023-12-23] MEDS: INVANZ 60 MG IV (08:18)
[2023-12-23 08:19] LABS: Glucose - Point of Care 118 mg/dl (70-99)
--- NOTE | 2023-12-23 10:44 | CM ---
Addendum entered by Jacquelin Remy RN 12/23/23 13:51:
The contact for [facility] Office is [phone].
Addendum entered by Jacquelin Remy RN 12/23/23 11:24:
Additionally Plan notify [facility] of d/c date for delivery med/supplies.
Original Note:
Patient with HX CIDP on IVIG and recent admission for sepsis secondary to empyema with outpatient IV ertapenum via PICC, here with Dx Acute Blood Loss Anemia secondary to upper GI Bleed, s/p transfusions and EGD. Room air. H/H 6.9/20.8 today -
transfusion. Receiving IV ertapenum. PT & OT recommend HH.
Message from Dr Reed; not medically ready for d/c today.
Spoke with Lelo Souza [facility]; they have no nurse availability until next 12/28 and cannot accept referral as his PCP does not have an [place] license.
Spoke with Nola, Lelo [facility] (ph [phone], fax [phone]); they are able to accept the referral, and a nurse is available for a home infusion teaching visit Tue (for d/c 12/24) and (for d/c 12/26). She was made aware
that [facility] nurse did first teaching visit here yesterday and cannot deliver on Sun 12/25 due to M/C rules. Script, PICC line info & demographics faxed.
Spoke with patient's daughter Frances (cell [phone]); she understands that [facility] declined and that the [facility] accepted. She was made aware that her father is not medically ready for d/c today.
Phone call to Sari Giordano; informed her no d/c today and VN agency will be [facility].
Plan notify [facility] of d/c date and confirm nurse availability for next day teaching visit at home.
Plan home with [facility] and [facility] for home IV Infusion, when medically ready.
--- NOTE | 2023-12-23 11:53 | W.PN.HOSP.TC ---
Today's Communication/Plan
-
Monitor vital signs and see plan
Continue antibiotics
Blood transfusion today
PT/OT
Hold off on starting Coumadin for now
Assessment / Plan
Assessment / Plan
General:�Comfortable, Conversant
HEENT:�Anicteric and Moist mucous membranes
Respiratory:�Clear and Non Labored Respirations
Cardiac:�S1/S2 and Regular Rhythm
GI:�Soft and non Tender
Musculoskeletal:�No Clubbing, No Cyanosis and No Edema
Skin:�Warm and Dry
Neuro:�Awake, Alert, Oriented and Nonfocal/grossly intact
Acute Blood Loss Anemia secondary to upper GI Bleed
overnight 12/19 with more dark stools with low hgb
Acute blood loss anemia secondary to above; GI bleed is likely exacerbated by Coumadin and aspirin
s/p 5 total units prbc
EGD 12/20 with duedenal ulcer with visible vessel with treatment
Monitor hemoglobin
PPI drip changed to p.o. PPI twice daily
Transfuse for hemoglobin less than 7, 1 unit PRBC /. spoke with pathologist /, patient will be receiving O+ blood. discussed in detail with patient that there is some risk of forming antibodies in future. he is ok with the risk and wants to move
with O+ blood
Tolerating diet.
GI following
Hold Coumadin; restart when hemoglobin is stable per gastroenterology
Monitor INR
Recent Sepsis secondary to Empyema
-Continue Invanz through Jan 05
family now wants home abx infusion; appreciate ID providing new script. patient has PICC line.
Coronary Artery Disease s/p CABG
-Hold aspirin due to GI Bleed, restart when okay with GI and cardiology
Hypokalemia
Improved
Chronic Diastolic Heart Failure
-Hold ethacrynic acid
-Monitor Is&Os and Daily Weights
Permanent Atrial Fibrillation s/p SHIRA clip and MAZE in Jul 2023
- Cardiology following
-Coumadin on hold due to GI Bleed
per cardiology BRADLEY prior to dc and hopeful that can come off warfarin. per cardiology conversation with patient; he wants to continue coumadin
Hypotension
-Continue midodrine as prior to admission
Hyperlipidemia
Diabetes Mellitus, Type II
-Monitor sugars and continue coverage insulin
-Hold Jardiance
CKD Stage III
-Creatinine at baseline
CIDP-Chronic Idiopathic Demyelinating Polyneuropathy
-Due to IVIG today, Dec 19
-Seen by neurology, per neurology IVIG is not urgent so can hold off
-Continue gabapentin
Hx Aortic Stenosis s/p Bioprosthetic Aortic Valve Replacement
DVT proph: SCDs
Code Status: Full Code
I spent a total of 52 minutes with the patient or on the floor. More than 50% of this time involved counseling and coordination of care.
Anticipated Discharge: 24 - 48 hours
Subjective/Interval History
-
Date of Service: December 23, 2023
Hemoglobin 6.9 today
Objective Data
-
Labs:
Laboratory Results
12/23/23
05:19
WBC 6.7
Hgb 6.9 L*
Hct 20.8 L*
Plt Count 133
PT 17.3 H
INR 1.40
Sodium 135
Potassium 3.9
Chloride 105
Carbon Dioxide 25
BUN 35 H
Creatinine 1.2
Glucose 124 H
Calcium 7.3 L
Total Bilirubin 0.5
AST 60 H
ALT 53 H
Alkaline Phosphatase 166 H
Vital Signs:
Vital Signs
Temp Pulse Resp BP Pulse Ox
98.5 F 71 18 138/57 97
12/23/23 11:39 12/23/23 07:00 12/23/23 07:00 12/23/23 07:00 12/23/23 07:00
I&O
12/22/23 12/23/23 12/24/23
06:59 06:59 06:59
Intake Total 120 / 120 960 / 960
Output Total 675 / 675 1000 / 1000
Balance -555 / -555 - / -
[2023-12-23 12:53] LABS: Glucose - Point of Care 140 mg/dl (70-99)
[2023-12-23] MEDS: FERRLECIT IV (14:18)
[2023-12-23 17:24] LABS: Glucose - Point of Care 109 mg/dl (70-99)
--- NOTE | 2023-12-23 20:35 | PTCARENOTE ---
Received pt from maría SAMSON. Pt OOB in the chair. 2nd unit of PRBCs finishing up. Pt is AAOx3. Vpaced and Afib on the monitor, trace LE edema. On RA O2 sat 96%, lungs diminished. Uses the urinal. Pt refused SCDs, education provided. Pt is sitting
comfortable in the chair with call acosta in reach.
[2023-12-23 21:43] LABS: Glucose - Point of Care 162 mg/dl (70-99)
[2023-12-24] VITALS (11 sets, daily range): BP systolic 92–126; BP diastolic 43–99; BMI 25.0
[2023-12-24 03:52] LABS: % Basophils 0.4 % (0-2); % Eosinophils 5.2 % (0-6); % Immature Granulocytes 1.1 % (0-0.5); % Lymphocytes 15.8 % (20.5-51.1); % Monocytes 9.4 % (1.7-9.3); % Neutrophils 68.1 % (42.2-75.2); Absolute Eosinophils 0.4 10^3/uL (0-0.7); Absolute Immature Granulocytes 0.1 10^3/uL (0-0.05); Absolute Lymphocytes 1.1 10^3/uL (1.2-3.4); Absolute Monocytes 0.7 10^3/uL (0.1-0.6); Absolute Neutrophils 4.8 10^3/uL (1.4-6.5); Hematocrit 28.4 % (39.0-52.0); Mean Corp Hgb Conc. 33.5 g/dL (33.0-37.0); Mean Corpuscular Hgb 30.4 pg (27.0-31.0); Mean Corpuscular Volume 90.7 fL (80.0-94.0); Mean Platelet Volume 10.8 fL (7.4-10.4); Nucleated Red Blood Cells % 0 % (-); Platelet Count 145 10^3/uL (130-400); Red Blood Cell Count 3.13 10^6/uL (4.70-6.10); White Blood Cell Count 7.1 10^3/uL (4.8-10.8)
[2023-12-24 03:54] LABS: Hemoglobin 9.5 g/dL (13.0-18.0)
[2023-12-24 04:10] LABS: INR 1.31; PT 16.1 Sec (11.4-14.6)
[2023-12-24 04:24] LABS: ALT (SGPT) 49 U/L (0-50); AST (SGOT) 51 U/L (17-59); Albumin 2.2 g/dl (3.5-5.0); Alkaline Phosphatase 186 U/L (38-126); Blood Urea Nitrogen 26 mg/dl (9-20); Calcium 7.3 mg/dl (8.4-10.2); Carbon Dioxide 24 mmol/L (22-30); Chloride 107 mmol/L (98-107); Estimated Creatinine Clearance 69 ml/min; Glucose 105 mg/dl (70-99); Sodium 133 mmol/L (135-145); Total Bilirubin 0.8 mg/dl (0.2-1.3); eGFR > 60.00
[2023-12-24 07:50] LABS: Glucose - Point of Care 96 mg/dl (70-99)
[2023-12-24] MEDS: ProAmatine 5 MG PO (08:09)
[2023-12-24] MEDS: NOVOLOG FLEXPEN-LOW RESISTANCE SC ×2 (08:09→11:56)
[2023-12-24] MEDS: NEURONTIN 300 MG PO (08:09)
[2023-12-24] MEDS: PROTONIX 40 MG PO (08:09)
--- NOTE | 2023-12-24 08:10 | W.PN.CD ---
Today's Communication / Plan
-
-Hemoglobin improved from 6.9 to 9.5 after blood transfusion yesterday.
-Can reinitiate Coumadin as per GI.
-Outpatient follow-up with Cardiology.
Impression / Plan
-
78 yo male with PMH of permanent Afib on warfarin, AVR with a 25 mm bioprosthetic aortic valve and coronary artery bypass graft x3 (GRIMES�LAD, SVG�OM and RCA) with maze, and 45 mm atrial clip 07/2023.
Anemia
-Hemoglobin improved from 6.9 to 9.5 after blood transfusion yesterday.
-Can reinitiate Coumadin as per GI.
CAD S/P CABG x3 by Dr. Benjamin 07/26/23 - stable.
- GRIMES to LAD, Ao to RSVG to OM1, Ao to RSVG to MARNIE, B/L [facility].
-Clinically stable.
S/P AVR 07/26/23, bio (25mm Inspiris) - Echo 08/10/23 - 60-65%, stable AVR peak/mean gradients 10/4 mmHg no AR, no change.
Permanent atrial fibrillation
- Left atrial MAZE/ SHIRA Exclusion (45mm Clip).
- Oral Anticoagulation: on chronic Warfarin. HOLD Warfarin given severe anemia/GIB.
- [id number]: score at least 5 (Heart failure, HTN, age 75 or more, Vascular disease).
CKD - stable.
SSS s/p PPM - Medtronic, stable.
CIDP - receives IVIG per neurology.
Subjective: No major events overnight. No cardiac complaints this a.m.; patient looks relatively well from a cardiac standpoint.
Physical Exam
Vital Signs/Labs
Vital Signs
Temp Pulse Resp BP Pulse Ox
99.1 F 70 20 109/51 96
12/24/23 07:00 12/24/23 06:00 12/24/23 06:00 12/24/23 06:00 12/24/23 06:00
12/23/23 12/24/23 12/25/23
06:59 06:59 06:59
Actual Weight 82.4 kg 83.6 kg
12/24/23 03:38
12/24/23 03:38
PT 16.1 Sec (11.4-14.6) H 12/24/23 03:38
INR 1.31 12/24/23 03:38
Physical Exam
Constitutional: No acute distress and Comfortable
EENT: Anicteric
Cardiovascular: Rhythm & rate is regular, Pedal edema present (1-2+), Systolic murmur present (2/6) and S1S2 is normal
Respiratory: Respiratory effort normal and Lungs clear to auscul.
GI: Soft
Other: Skin (Warm, dry, intact)
Data Reviewed
-
Date of Service: December 24, 2023
EKG: Tracing Personally Visualized and interpreted (Telemetry: A-fib/V paced)
Medical Tests (PFT, Pathology etc): Discussed with Patient
Labs: Labs Reviewed by me
[2023-12-24] MEDS: INVANZ 60 MG IV (08:26)
[2023-12-24 11:53] LABS: Glucose - Point of Care 135 mg/dl (70-99)
--- NOTE | 2023-12-24 11:55 | W.PN.HOSP.TC ---
Addendum entered and electronically signed by Gabriel Reed MD 12/24/23 12:19:
Time of discharge 37 minutes
Original Note:
Today's Communication/Plan
-
Monitor vital signs and see plan
Continue with Abx
Restart Coumadin
Discharge pending set up of home antibiotics. manager global aware
Assessment / Plan
Assessment / Plan
General:�Comfortable, Conversant
HEENT:�Anicteric and Moist mucous membranes
Respiratory:�Clear and Non Labored Respirations
Cardiac:�S1/S2 and Regular Rhythm
GI:�Soft and non Tender
Musculoskeletal:�No Clubbing, No Cyanosis and No Edema
Skin:�Warm and Dry
Neuro:�Awake, Alert, Oriented and Nonfocal/grossly intact
Acute Blood Loss Anemia secondary to upper GI Bleed
overnight 12/19 with more dark stools with low hgb
Acute blood loss anemia secondary to above; GI bleed is likely exacerbated by Coumadin and aspirin
s/p 5 total units prbc
EGD 12/20 with duedenal ulcer with visible vessel with treatment
Monitor hemoglobin
PPI drip changed to p.o. PPI twice daily
Transfuse for hemoglobin less than 7, 1 unit PRBC 12/23. spoke with pathologist 12/23, patient will be receiving O+ blood. discussed in detail with patient that there is some risk of forming antibodies in future. he is ok with the risk and wants to move
with O+ blood
hgb now 9.5; started coumadin 2/
Tolerating diet.
GI following
Monitor INR
Recent Sepsis secondary to Empyema
-Continue Invanz through Jan 05
family now wants home abx infusion; appreciate ID providing new script. patient has PICC line.
CM to find out if this will be costly for patient
Hyponatremia
monitor
Coronary Artery Disease s/p CABG
Restart aspirin
Hypokalemia
Improved
Chronic Diastolic Heart Failure
-Hold ethacrynic acid
-Monitor Is&Os and Daily Weights
Permanent Atrial Fibrillation s/p SHIRA clip and MAZE in Jul 2023
- Cardiology following
Coumadin restarted, no plan for BRADLEY
Hypotension
-Continue midodrine as prior to admission
Hyperlipidemia
Diabetes Mellitus, Type II
-Monitor sugars and continue coverage insulin
-Hold Jardiance
CKD Stage III
-Creatinine at baseline
CIDP-Chronic Idiopathic Demyelinating Polyneuropathy
-Due for IVIG, Dec 19
-Seen by neurology, per neurology IVIG is not urgent so can hold off
-Continue gabapentin
Hx Aortic Stenosis s/p Bioprosthetic Aortic Valve Replacement
DVT proph: SCDs
Code Status: Full Code
Anticipated Discharge: Today
Subjective/Interval History
-
Date of Service: December 24, 2023
denies pain
Objective Data
-
Labs:
Laboratory Results
12/24/23
03:38
WBC 7.1
Hgb 9.5 L D
Hct 28.4 L
Plt Count 145
PT 16.1 H
INR 1.31
Sodium 133 L
Potassium 4.0
Chloride 107
Carbon Dioxide 24
BUN 26 H
Creatinine 1.0
Glucose 105 H
Calcium 7.3 L
Total Bilirubin 0.8
AST 51
ALT 49
Alkaline Phosphatase 186 H
Vital Signs:
Vital Signs
Temp Pulse Resp BP Pulse Ox
98.5 F 70 19 92/45 96
12/24/23 11:00 12/24/23 10:02 12/24/23 10:02 12/24/23 10:02 12/24/23 10:52
I&O
12/23/23 12/24/23 12/25/23
06:59 06:59 06:59
Intake Total 960 / 960 1660 / 1660 360 / 360
Output Total 1000 / 1000 1250 / 1250 300 / 300
Balance -40 / -40 410 / 410 60 / 60
--- NOTE | 2023-12-24 12:18 | W.DCSUMMARY ---
Discharge Summary
Discharge Data
Date of Admission: 12/19/23
Date of Discharge: 12/24/23
-
Pending Results: No
Hospital Course
78-year-old male with past medical history of recent sepsis secondary to empyema, coronary artery disease status post CABG, chronic diastolic heart failure, permanent atrial fibrillation, type 2 diabetes mellitus, CKD, chronic idiopathic
demyelinating polyneuropathy, aortic stenosis status post bioprosthetic aortic valve replacement came to the hospital with acute blood loss anemia secondary to upper GI bleed. Patient was seen by GI throughout hospitalization. Patient was
initially started on PPI drip which was later transitioned to oral PPI. Patient required multiple blood transfusion. Patient was taken for endoscopy which showed duodenal ulcer with visible vessel which was treated. Patient hemoglobin continued
to improve throughout hospitalization. Eventually was started back on Coumadin on the day of discharge.. Given his history of probably neuropathy and missing IVIG, neurology was consulted who recommended patient to follow-up outpatient for further
IVIG and there is no urgent need at this time. Due to his empyema and currently on antibiotics, he decided he wants to continue antibiotics at home rather than going to infusion center. With help of case reviewer home antibiotics set up. Once his
symptoms improved he was then discharged home with close follow-up with all his physicians outpatient.
Discharge Plan
-
Patient Disposition: Home with Home Care
Discharge Diagnosis/Procedures: Acute Blood Loss Anemia secondary to upper gastrointestinal bleed
Supratherapeutic INR
Hyponatremia
Hypokalemia
Diet: As tolerated
Activity: As tolerated
Driving Restrictions: As prior to admission
Bathing Restrictions: None
Blood Work: CBC in one week (prior to cardiology follow up).
INR check outpatient with PCP next week
Referrals:
Nori Garcia CRNP [Specified Professional Personl] - 01/02/24 11:20 am
Scott Martinez MD [Family Provider] - in less than 1 week
Alex Taylor MD [Active] - in two to three weeks
Prescriptions:
New
pantoprazole 40 mg Tablet,Delayed Release (Dr/Ec)
40 mg PO BID Qty: 60 0RF
Continued
atorvastatin 80 mg Tablet
80 mg PO .SEE BELOW
Hold Instructions: Resume on 12/14/23. if LFTS are back to baseline, ok to restart
Patient Comments:
12/19/2023, pt.'s spouse states that this med. is currently on hold.
Rx Instructions:
12/19/2023, currently on hold.
aspirin 81 mg Tablet,Delayed Release (Dr/Ec)
81 mg PO DAILY
Jardiance 10 mg Tablet
10 mg PO QPM
Ertapenem [Invanz] 1000 MG
0.9% Sodium Chloride [Nss] 50 ML
120 mls/hr IV Q24H
Reason for use: Infection
Ordered By: Baldev Treviño MD
Last Taken: 12/19/23
Patient Comments:
12/19/2023, contacted OID Department to confirm dose and frequency. Last dose of this med. is 01/05/2024.
midodrine 5 mg Tablet
5 mg PO BID Qty: 60 0RF
gabapentin 300 MG capsule
300 mg PO TID Qty: 0 0RF
acetaminophen [Tylenol] 325 mg Tablet
650 mg PO DAILYPRN PRN (Reason: mild pain)
warfarin 4 mg Tablet
8 mg PO FR@1800
Gammagard
70 g IV Q4W
Patient Comments:
12/19/2023, per spouse, pt. was supposed to get this infusion today but they did not. Contacted OID Department to confirm dose and frequency of this med.
Rx Instructions:
12/19/2023, divided dose of 35 grams x 2 days. Not S/D.
warfarin 4 mg tablet
4 mg PO SUMOTUWETHSA@1800
ethacrynic acid 25 mg tablet
25 mg PO DAILY
Held
lisinopril 20 mg Tablet
20 mg PO .SEE BELOW
Hold Instructions: restart when BP>140/90
Patient Comments:
12/19/2023, pt.'s spouse states that this med. is currently on hold.
Rx Instructions:
12/19/2023, this med. is currently on hold.
Discharge Orders:
Discharge Patient (As Directed); Ordered 12/24/23
Ordered By: Gabriel Reed
Discharge Date and Time
Discharge Date/Time: 12/24/23 14:45
--- NOTE | 2023-12-24 13:31 | CM ---
digital learning platforms manager reviewed patient's chart and met with patient and spoke with [facility] and patient's ABX will be delivered today after 5pm, patient has been set up with [facility] and nurse Ashlee will see
patient tomorrow. Patient to return to home on Invanz cost for medication and supplies is approx $240 per week, patient is aware of cost.
Plan; Home today with home infusion from [facility] and [facility].
[facility]
[phone], fax [phone])
== END 2023-12-24 14:45 | disposition home health service (06) | DRG 377 ==
LOC: IMU 15:21
PROVIDERS: Hospitalist; Internal Medicine Cardiovascular Disease; Internal Medicine Gastroenterology; Nurse Practitioner; Physician Assistant Medical; ADMITTING PHYSICIAN Internal Medicine; CONSULT PHYSICIAN Internal Medicine; CONSULT PHYSICIAN Student in an Organized Health Care Education/Training Program; EMERGENCY PHYSICIAN Student in an Organized Health Care Education/Training Program; FAMILY PHYSICIAN Family Medicine
PROC: 30233N1 Transfusion of Nonautologous Red Blood Cells into Peripheral Vein, Percutaneous Approach (ICD-10-PCS; 2023-12-19)
PROC: 0DJ08ZZ Inspection of Upper Intestinal Tract, Via Natural or Artificial Opening Endoscopic (ICD-10-PCS; 2023-12-20)
PROC: 30233K1 Transfusion of Nonautologous Frozen Plasma into Peripheral Vein, Percutaneous Approach (ICD-10-PCS; 2023-12-20)
DX: K26.4 Chronic or unspecified duodenal ulcer with hemorrhage (principal); J86.9 Pyothorax without fistula; D62 Acute posthemorrhagic anemia; I25.810 Atherosclerosis of coronary artery bypass graft(s) without angina pectoris; I13.0 Hypertensive heart and chronic kidney disease with heart failure and stage 1 through stage 4 chronic kidney disease, or unspecified chronic kidney disease; I50.32 Chronic diastolic (congestive) heart failure; G61.81 Chronic inflammatory demyelinating polyneuritis; E87.1 Hypo-osmolality and hyponatremia; D68.32 Hemorrhagic disorder due to extrinsic circulating anticoagulants; N18.30 Chronic kidney disease, stage 3 unspecified; I35.0 Nonrheumatic aortic (valve) stenosis; Z95.3 Presence of xenogenic heart valve; E78.5 Hyperlipidemia, unspecified; G25.81 Restless legs syndrome; Z79.82 Long term (current) use of aspirin; Z79.01 Long term (current) use of anticoagulants; E87.6 Hypokalemia; I95.9 Hypotension, unspecified; E11.22 Type 2 diabetes mellitus with diabetic chronic kidney disease
CPT/HCPCS: 36430; 71046; 74174; 80048; 80053; 82962; 84484; 85014; 85018; 85025; 85027; 85384; 85610; 85670; 86850; 86900; 86901; 86920; 93005; 96360; 96365; 97110; 97116; 97162; 97165; 99285; J1335; J2916; P9016; P9059; Q9967

== ENCOUNTER → 2023-12-27 12:40 | Outpatient (REF) | payer MEDICARE, SELFPAY ==
--- NOTE | 2023-12-19 15:00 | CON.GI ---
Addendum entered and electronically signed by Alex Taylor MD 12/19/23 19:48:
I saw and examined the patient.
The PA's note was reviewed and I agree with the note.
Comment:
Pt is a 78 year old male with multiple co-morbidities including afib on warfarin,�AVR status post maze, CAD, hypertension, , DM, chronic inflammatory demyelinating polyneuropathy on IVIG, acute renal failure/CKD with� recent admission with sepsis
and ANI with left sided effusion and empyema p/w anemia and melena. �Pt was receiving Invanz from [facility] center when he was noted to have Hgb drop from 8.4 to 6.3 and was sent in to ER. He then had melena in ER.� Denies NSAID use or abdo pain.
INR 3.6 today.� No previous EGD, last colonoscopy 2021 which showed diverticulum in sigmoid. Will need EGD for eval, will defer until INR is < 2. Will follow.
Original Note:
Consultation
-
Date/Time Consultation Requested: 12/19/23 1500
Date/Time Consultation Performed: 12/19/23 1500
Requesting Provider: Leonor Esteban PA-C
Performing Provider: KERRY Henry, Alex Taylor MD
Reason for Consultation: anemia
Medical History
Chief Complaint / HPI
Chief Complaint: balck stool
History of Present Illness:
78-year-old male with past medical history of atrial fibrillation on warfarin, AVR status post maze, SHIRA clip, PFO, CAD, hypertension, aortic stenosis, hyperlipidemia, diabetes, RLS, chronic inflammatory demyelinating polyneuropathy on IVIG,
prostatitis, cellulitis, anemia, pleural effusions, acute renal failure/CKD with recent admission with sepsis and ANI with left sided effusion and empyema. During admission pt had GI evaluation in early November for increased LFT's with concern
for infection, medication vs other. Pt was discharged home with IV abx with Invanz and now returns with anemia and black stools in ER. He was due for Invanz today and IVIG for hx CIPD but noted with anemia and sent to ER. On admission hbg was 6.3
down from 8.4 on 12/12. BUN is 57 up from 30 on 12/12 and INR 3.6. No hx EGD and last colonoscopy 2021 diverticulum in sigmoid. Pt also with some mild LFT elevation with bili 0.6, AST 61, alt 59, alk phos 205.
Pt admits to fatigue and nausea and some loose stool this am but denies dysphagia, GERD, abdominal pain, constipation or red stools. No NSAID use.
Past Medical History
Past Medical History: Arrhythmias (Afib), CAD, CHF, HTN, Hypercholesterolemia, NIDDM and Other (chronic inflammatory demyelinating polyneuropathy on IVIG, foot numbness, prostatitis, cellulitis, anemia, aortic stenosis, right rib fx, PNA, pleural
effusion Left, ARF, CKD 3, PFO L>R shunt)
Past Surgical History: Other (pacemaker, right ulnar nerve release, right tricep repair, CABG, AVR)
Social History
Tobacco: Non-Smoker
Alcohol: None
Drug: None
Personal:
Living: With Family
Employment: Retired
Family History
Family History: Other (No fam hx of GI malignancy or IBD)
Allergies / Home Medications
Allergy/AdvReac Type Severity Reaction Status Date / Time
aspirin Allergy sweats Verified 12/19/23 10:21
atorvastatin Allergy Unknown Verified 12/19/23 10:21
diphenhydramine Allergy tightness Verified 12/19/23 10:21
of skin
furosemide Allergy Hives Verified 12/19/23 10:21
heparin (porcine) Allergy Hives Verified 12/19/23 10:21
Penicillins Allergy Hives Verified 12/19/23 10:21
Salicylates * Allergy sweats Verified 12/19/23 10:21
Zywplbn-OQT-ChU Reductase Allergy Unknown Verified 12/19/23 10:21
Inhibitor
[Cvvfboz-Pql-Aun Reductase
Inhibitor]
Medication Instructions Recorded
atorvastatin 80 mg tablet 80 mg PO .SEE BELOW High 08/18/23
Cholesterol
aspirin 81 mg tablet,delayed 81 mg PO DAILY Blood Clot 11/24/23
release Prevention/Tx
empagliflozin 10 mg tablet 10 mg PO QPM Diabetes/CHF 11/24/23
(Jardiance)
Ertapenem [Invanz] 1,000 mg 120 mls/hr IV Q24H Infection 12/08/23
ethacrynic acid 25 mg tablet 25 mg PO DAILY #30 tabs 12/08/23
gabapentin 300 mg capsule 300 mg PO TID Pain #0 caps 12/08/23
midodrine 5 mg tablet 5 mg PO BID Blood pressure #60 tabs 12/08/23
Gammagard 70 g IV Q4W 12/19/23
acetaminophen 325 mg tablet 650 mg PO DAILYPRN PRN mild pain 12/19/23
(Tylenol)
lisinopril 20 mg tablet 20 mg PO .SEE BELOW 12/19/23
warfarin 4 mg tablet 4 mg PO SUMOTUWETHSA@1800 Blood 12/19/23
clot prevention/tx
warfarin 4 mg tablet 8 mg PO FR@1800 12/19/23
Review of Systems
-
History Source: Patient and Family
Constitutional: Reports Weight Loss and Chills
EENT: Reports No Symptoms
Respiratory: Reports No Symptoms
Cardiac: Reports No Symptoms
Abdomen/GI: Reports Nausea, Diarrhea and Bloody Stools
: Reports No Symptoms
Musculoskeletal: Reports No Symptoms
Skin: Reports No Symptoms
Neurological: Reports Weakness
Endocrine: Reports No Symptoms
Hematologic/Lymphatic: Reports Bleeding
Physical Exam
Exam
General: Other (pale appearing )
HEENT: Normocephalic and Anicteric
Respiratory: Clear
Cardiac: Regular Rhythm
GI: Soft, Non Tender and Non Distended
Musculoskeletal: No Clubbing and No Cyanosis
Skin: Warm and Dry
Neuro: Awake, Alert and AO x 3
Psych: Calm
Results
Diagnostic Image Results:
12/01/23 US Abdomen:
IMPRESSION:
Limited visualization of the midline due to overlying bowel gas. The pancreas, IVC and aorta could not be fully evaluated.
Left pleural effusion, moderate.
Remainder of the exam was unremarkable.
Electronically signed by Aleisha Wilhelm MD 12/01/2023 7:[address]/Pelvis without IV contrast:
IMPRESSION:
1). There is vascular calcification including renal vascular calcification indicating atherosclerosis
The kidneys are otherwise normal
There are no obstructing renal or ureteral calculi.
There is no hydronephrosis or hydroureter.
2).There is large left pleural effusion with underlying left lower lobe atelectasis
3). Diverticuli are present in the colon with no CT evidence of diverticulitis
Electronically signed by Sanjeev Palmer MD 11/28/2023 1:52 PM
Prior GI Procedures:�
EGD:� none
Colonoscopy:� 05/17/22 ([facility]) A single medium-mouthed diverticulum was found in the sigmoid colon.
�� � No other significant abnormalities were identified in a careful
�� � examination of the remainder of the colon.
�� � No additional abnormalities were found on retroflexion.
Colonoscopy 06/06/12 ([facility]) �- One 4 mm polyp in the cecum. Tissue was removed. This
�� � � � � � � � � � was biopsied.
�� � � � � � � � � � - Non-bleeding internal hemorrhoids.
�� � � � � � � � � � - The examined portion of the ileum was normal.
Assessment / Plan
-
78-year-old male with past medical history of atrial fibrillation on warfarin, AVR status post maze, SHIRA clip, PFO, CAD, hypertension, aortic stenosis, hyperlipidemia, diabetes, RLS, chronic inflammatory demyelinating polyneuropathy on IVIG,
prostatitis, cellulitis, anemia, pleural effusions, acute renal failure/CKD with recent admission with sepsis and ANI with left sided effusion and empyema. During admission pt had GI evaluation in early November for increased LFT's with concern
for infection, medication vs other. Pt was discharged home with IV abx with Invanz and now returns with anemia and black stools in ER. He was due for Invanz today and IVIG for hx CIPD but noted with anemia and sent to ER. On admission hbg was
6.3 down from 8.4 on 12/12. BUN is 57 up from 30 on 12/12 and INR 3.6. No hx EGD and last colonoscopy 2021 diverticulum in sigmoid. Pt also with some mild LFT elevation with bili 0.6, AST 61, alt 59, alk phos 205.
Impression:
-anemia with melena in ER concern for UGI bleeding
-recent sepsis with empyema with current OP Abx with Invanz
-increased LFT's
-hypotension in ER
-afib on coumadin prior to admission
Other Dx:
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
with bioprosthetic AVR
hx Maze, SHIRA clip
PFO
CAD with prior CABG
DM
RLS, prostatitis
CKD stage III
PLAN:etiology of anemia and black stools with concern for PUD, ectasia, mass vs other in setting of INR 3.6
agree with transfusion
if increased bleeding consider reversal
consider eventual EGD
warfarin hold for cards eval
trend LFT's OP serology if does note normalize
PPI BID
ok for clear diet
will follow
-
-
Thank you for consultation and allowing me to participate in the patient's care. Please call the association executive GI physician during the after hours with any questions or concerns.
== END ==
LOC: RAD 12:40
PROVIDERS: ATTENDING PHYSICIAN Nurse Practitioner; FAMILY PHYSICIAN Family Medicine; REFERRING PHYSICIAN Thoracic Surgery (Cardiothoracic Vascular Surgery)
DX: J86.9 Pyothorax without fistula (principal)
CPT/HCPCS: 71260; Q9967

== ENCOUNTER → 2023-12-30 10:10 | Outpatient (REF) | payer MEDICARE, SELFPAY ==
[2023-12-30 11:35] LABS: % Basophils 0.3 % (0-2); % Eosinophils 0.6 % (0-6); % Immature Granulocytes 0.9 % (0-0.5); % Monocytes 7.5 % (1.7-9.3); % Neutrophils 75.7 % (42.2-75.2); Absolute Immature Granulocytes 0.1 10^3/uL (0-0.05); Absolute Monocytes 0.5 10^3/uL (0.1-0.6); Absolute Neutrophils 4.8 10^3/uL (1.4-6.5); Hematocrit 28.8 % (39.0-52.0); Hemoglobin 9.2 g/dL (13.0-18.0); Mean Corp Hgb Conc. 31.9 g/dL (33.0-37.0); Mean Corpuscular Hgb 29.6 pg (27.0-31.0); Mean Corpuscular Volume 92.6 fL (80.0-94.0); Mean Platelet Volume 10.6 fL (7.4-10.4); Nucleated Red Blood Cells % 0 % (-); Platelet Count 214 10^3/uL (130-400); Red Blood Cell Count 3.11 10^6/uL (4.70-6.10); Red Cell Dist. Width 15.5 % (11.5-14.5); White Blood Cell Count 6.4 10^3/uL (4.8-10.8)
[2023-12-30 12:00] LABS: Blood Urea Nitrogen 23 mg/dl (9-20); Calcium 7.8 mg/dl (8.4-10.2); Carbon Dioxide 29 mmol/L (22-30); Chloride 99 mmol/L (98-107); Glucose 158 mg/dl (70-99); Potassium 4.1 mmol/L (3.5-5.1); Sodium 132 mmol/L (135-145); eGFR > 60.00
== END ==
LOC: REG 10:10
PROVIDERS: ATTENDING PHYSICIAN Family Medicine; REFERRING PHYSICIAN Internal Medicine Infectious Disease
DX: D50.0 Iron deficiency anemia secondary to blood loss (chronic) (principal); E87.5 Hyperkalemia
CPT/HCPCS: 36415; 80048; 85025

== ENCOUNTER 2024-01-06 07:45 | Outpatient (RCR) | payer MEDICARE, SELFPAY ==
[2024-01-06] VITALS (16 sets, daily range): BP systolic 102–144; BP diastolic 55–87
[2024-01-06] MEDS: GAMMAGARD 100 IV (08:07)
--- NOTE | 2024-01-06 08:46 | PTCARENOTE ---
Addendum entered by Geraldine Marin RN 01/06/24 16:01:
1530 IVIG completed, Patient tolerated well. Right PICC total of 48cm removed without incident, no bleeding noted. Dressing applied. Instructed patient ands to leave dressing in place, may remove tomorrow. Pt discharged in good condition.
Original Note:
Pt here today for IVIG. Pt AAO x 3. Ambulating without assistance. VS within normal limits. Pt reported he is scheduled for thoracentesis on Tuesday01/09/24. Right lung clear to auscultation. Left side lung sounds decreased. Pulse OX 98% on room air
. Pt admits mild shortness of breath on exertion. Pt denies any pain. Pt resting comfortably.
[2024-01-06] MEDS: GAMMAGARD 300 IV ×2 (09:13→12:11)
== END 2024-01-09 12:02 | disposition other institution (70) ==
LOC: OID 07:45
PROVIDERS: ATTENDING PHYSICIAN Internal Medicine Infectious Disease; FAMILY PHYSICIAN Family Medicine; PRIMARYCARE PHYSICIAN Neurological Surgery; REFERRING PHYSICIAN Internal Medicine Cardiovascular Disease
DX: G61.81 Chronic inflammatory demyelinating polyneuritis (principal); N18.30 Chronic kidney disease, stage 3 unspecified; E11.22 Type 2 diabetes mellitus with diabetic chronic kidney disease
CPT/HCPCS: 36589; 96365; 96366; J1569

== ENCOUNTER → 2024-01-09 10:44 | Outpatient (REF) | payer MEDICARE, SELFPAY ==
[2024-01-09 11:15] VITALS: BP 170/82; BP_SYST 73
[2024-01-09 11:15] LABS: INR 1.79; PT 20.6 Sec (11.4-14.6)
== END ==
LOC: RADI 10:44
PROVIDERS: ATTENDING PHYSICIAN Thoracic Surgery (Cardiothoracic Vascular Surgery); FAMILY PHYSICIAN Family Medicine
DX: J90 Pleural effusion, not elsewhere classified (principal); Z53.8 Procedure and treatment not carried out for other reasons; D68.8 Other specified coagulation defects
CPT/HCPCS: 36415; 76604; 85610

== ENCOUNTER 2024-01-18 09:37 | Outpatient (RCR) | payer MEDICARE, SELFPAY | END 2024-01-18 23:59 | disposition home or self-care (01) | LOC: CRHB 09:37 | PROVIDERS: ATTENDING PHYSICIAN Internal Medicine Cardiovascular Disease; FAMILY PHYSICIAN Family Medicine | DX: I25.10 Atherosclerotic heart disease of native coronary artery without angina pectoris (principal); Z95.1 Presence of aortocoronary bypass graft | CPT/HCPCS: G0422; G0423 ==

== ENCOUNTER 2024-02-02 07:41 | Outpatient (RCR) | payer MEDICARE, SELFPAY ==
[2024-02-02] VITALS (16 sets, daily range): BP systolic 116–159; BP diastolic 50–84
[2024-02-02] MEDS: GAMMAGARD 200 IV ×2 (08:16→10:18)
[2024-02-02] MEDS: GAMMAGARD 300 IV (12:27)
== END 2024-02-19 23:59 | disposition home or self-care (01) ==
LOC: OID 07:41
PROVIDERS: ATTENDING PHYSICIAN Neurological Surgery
DX: G61.81 Chronic inflammatory demyelinating polyneuritis (principal)
CPT/HCPCS: 96365; 96366; J1569

== ENCOUNTER 2024-02-08 09:24 | Outpatient (RCR) | payer MEDICARE, SELFPAY | END 2024-02-08 23:59 | disposition home or self-care (01) | LOC: CRHB 09:24 | PROVIDERS: ATTENDING PHYSICIAN Internal Medicine Cardiovascular Disease; FAMILY PHYSICIAN Family Medicine | DX: I25.10 Atherosclerotic heart disease of native coronary artery without angina pectoris (principal); Z95.1 Presence of aortocoronary bypass graft | CPT/HCPCS: G0422; G0423 ==

== ENCOUNTER → 2024-02-10 08:47 | Outpatient (REF) | payer MEDICARE, SELFPAY ==
[2024-02-10 11:18] LABS: % Basophils 0.6 % (0-2); % Eosinophils 1.6 % (0-6); % Immature Granulocytes 0.6 % (0-0.5); % Lymphocytes 19.1 % (20.5-51.1); % Monocytes 8.5 % (1.7-9.3); % Neutrophils 69.6 % (42.2-75.2); Absolute Eosinophils 0.1 10^3/uL (0-0.7); Absolute Lymphocytes 1.3 10^3/uL (1.2-3.4); Absolute Monocytes 0.6 10^3/uL (0.1-0.6); Absolute Neutrophils 4.7 10^3/uL (1.4-6.5); Hematocrit 33.8 % (39.0-52.0); Hemoglobin 10.8 g/dL (13.0-18.0); Mean Corpuscular Hgb 27.8 pg (27.0-31.0); Mean Corpuscular Volume 87.1 fL (80.0-94.0); Mean Platelet Volume 10.2 fL (7.4-10.4); Nucleated Red Blood Cells % 0 % (-); Platelet Count 236 10^3/uL (130-400); Red Blood Cell Count 3.88 10^6/uL (4.70-6.10); Urine Albumin Trace (Neg - Trace); Urine Bilirubin Negative (Negative); Urine Character Clear (Clear); Urine Color Yellow; Urine Glucose 3+ (Negative); Urine Ketone Negative (Negative); Urine Leukocyte Negative (Negative); Urine Nitrite Negative (Negative); Urine Occult Blood Trace (Negative); Urine Specific Gravity 1.015 (<1.030); Urine Urobilinogen Negative (Neg - 1+); White Blood Cell Count 6.7 10^3/uL (4.8-10.8)
[2024-02-10 11:47] LABS: ALT (SGPT) 60 U/L (0-50); AST (SGOT) 54 U/L (17-59); Albumin 3.4 g/dl (3.5-5.0); Alkaline Phosphatase 208 U/L (38-126); Amylase 60 U/L (30-110); Blood Urea Nitrogen 30 mg/dl (9-20); Calcium 8.9 mg/dl (8.4-10.2); Carbon Dioxide 27 mmol/L (22-30); Chloride 102 mmol/L (98-107); Glucose 140 mg/dl (70-99); Lipase 159 U/L (23-300); Phosphorus 4.4 mg/dl (2.5-4.5); Potassium 4.2 mmol/L (3.5-5.1); Sodium 135 mmol/L (135-145); Total Bilirubin 0.8 mg/dl (0.2-1.3); eGFR > 60.00
[2024-02-10 12:03] LABS: Free T4 1.36 ng/dl (0.78-2.19)
[2024-02-10 12:08] LABS: Protein/creatinine Ratio 0.4; Urine Protein 39 mg/dl; Urine Sodium 70 mmol/L (30-90)
[2024-02-10 12:17] LABS: PSA, Total - Screen 1.14 ng/ml (0.0-4.0); TSH 1.03 uIU/ml (0.47-4.68)
[2024-02-10 12:24] LABS: Urine Mucus Few
[2024-02-10 12:27] LABS: Urine Amorphous Seen; Urine Granular Cast 0-2 /LPF (0); Urine Red Blood Cell 0-2 /HPF (0-2); Urine White Cell 0-2 /HPF (0-5)
[2024-02-10 13:08] LABS: Osmolality Urine 663 mOsm/kg (300-900)
== END ==
LOC: REG 08:47
PROVIDERS: ATTENDING PHYSICIAN Student in an Organized Health Care Education/Training Program; FAMILY PHYSICIAN Nurse Practitioner Adult Health; OTHER PHYSICIAN Family Medicine; REFERRING PHYSICIAN Nurse Practitioner
DX: J90 Pleural effusion, not elsewhere classified (principal); J86.9 Pyothorax without fistula; N18.31 Chronic kidney disease, stage 3a; K26.4 Chronic or unspecified duodenal ulcer with hemorrhage; R79.89 Other specified abnormal findings of blood chemistry; R63.4 Abnormal weight loss; Z12.5 Encounter for screening for malignant neoplasm of prostate; I10 Essential (primary) hypertension
CPT/HCPCS: 36415; 71046; 80053; 81003; 81015; 82150; 82570; 83690; 83935; 84100; 84156; 84300; 84439; 84443; 85025; G0103

== ENCOUNTER → 2024-03-05 08:47 | Outpatient (REF) | payer MEDICARE, SELFPAY | LOC: RAD 08:47 | PROVIDERS: ATTENDING PHYSICIAN Student in an Organized Health Care Education/Training Program; FAMILY PHYSICIAN Family Medicine | DX: N18.31 Chronic kidney disease, stage 3a (principal) | CPT/HCPCS: 76770 ==

== ENCOUNTER 2024-03-07 07:39 | Outpatient (RCR) | payer MEDICARE, SELFPAY ==
[2024-02-22] VITALS (16 sets, daily range): BP systolic 132–177; BP diastolic 74–102
[2024-02-22] MEDS: GAMMAGARD 200 IV ×2 (08:14→10:09)
[2024-02-22] MEDS: GAMMAGARD 300 IV (12:16)
[2024-02-29] MEDS: INJECTAFER 265 MG IV (09:29)
[2024-02-29 09:35] VITALS: BP 136/60
[2024-02-29 10:10] VITALS: BP 146/84
[2024-02-29 10:50] VITALS: BP 135/68
[2024-03-07] VITALS (16 sets, daily range): BP systolic 115–169; BP diastolic 58–93
[2024-03-07] MEDS: INJECTAFER 265 MG IV (08:21)
[2024-03-07] MEDS: GAMMAGARD 200 IV ×2 (09:04→11:09)
[2024-03-07] MEDS: GAMMAGARD 300 IV (13:15)
== END 2024-03-19 15:48 | disposition home or self-care (01) ==
LOC: OID 07:39
PROVIDERS: ATTENDING PHYSICIAN Neurological Surgery
DX: G61.81 Chronic inflammatory demyelinating polyneuritis (principal); N18.30 Chronic kidney disease, stage 3 unspecified; E11.22 Type 2 diabetes mellitus with diabetic chronic kidney disease
CPT/HCPCS: 96365; 96366; 96367; J1439; J1569

== ENCOUNTER → 2024-03-12 08:43 | Outpatient (REF) | payer MEDICARE, SELFPAY | LOC: RAD 08:43 | PROVIDERS: ATTENDING PHYSICIAN Surgery Vascular Surgery; FAMILY PHYSICIAN Family Medicine | DX: I73.9 Peripheral vascular disease, unspecified (principal) | CPT/HCPCS: 93922; 93925 ==

== ENCOUNTER → 2024-03-27 12:47 | Outpatient (REF) | payer MEDICARE, SELFPAY | LOC: RAD 12:47 | PROVIDERS: ATTENDING PHYSICIAN Thoracic Surgery (Cardiothoracic Vascular Surgery); FAMILY PHYSICIAN Family Medicine | DX: J90 Pleural effusion, not elsewhere classified (principal) | CPT/HCPCS: 71260; Q9967 ==

== ENCOUNTER 2024-04-20 07:40 | Outpatient (RCR) | payer MEDICARE, SELFPAY ==
[2024-03-22] VITALS (16 sets, daily range): BP systolic 108–153; BP diastolic 66–86
[2024-03-22] MEDS: GAMMAGARD 200 IV ×2 (08:20→10:26)
[2024-03-22] MEDS: GAMMAGARD 300 IV (12:34)
[2024-03-30] VITALS (16 sets, daily range): BP systolic 108–158; BP diastolic 47–99
[2024-03-30] MEDS: GAMMAGARD 200 IV ×2 (08:22→10:29)
[2024-03-30] MEDS: GAMMAGARD 300 IV (12:55)
[2024-04-06] VITALS (16 sets, daily range): BP systolic 101–139; BP diastolic 54–86
[2024-04-06] MEDS: GAMMAGARD 200 IV ×2 (08:09→10:10)
[2024-04-06] MEDS: GAMMAGARD 300 IV (12:18)
[2024-04-13] VITALS (17 sets, daily range): BP systolic 121–150; BP diastolic 67–86
[2024-04-13] MEDS: GAMMAGARD 200 IV ×2 (08:16→10:16)
[2024-04-13] MEDS: GAMMAGARD 300 IV (12:34)
[2024-04-20] VITALS (17 sets, daily range): BP systolic 101–146; BP diastolic 45–89
[2024-04-20] MEDS: GAMMAGARD 200 IV ×2 (08:11→10:25)
[2024-04-20] MEDS: GAMMAGARD 300 IV (12:40)
== END 2024-04-20 23:59 | disposition home or self-care (01) ==
LOC: OID 07:40
PROVIDERS: ATTENDING PHYSICIAN Neurological Surgery; FAMILY PHYSICIAN Family Medicine
DX: G61.81 Chronic inflammatory demyelinating polyneuritis (principal); N18.30 Chronic kidney disease, stage 3 unspecified; E11.22 Type 2 diabetes mellitus with diabetic chronic kidney disease
CPT/HCPCS: 96365; 96366; J1569

== ENCOUNTER 2024-05-18 07:41 | Outpatient (RCR) | payer MEDICARE, SELFPAY ==
[2024-04-27] VITALS (17 sets, daily range): BP systolic 104–140; BP diastolic 53–84
[2024-04-27] MEDS: GAMMAGARD 200 IV ×2 (08:03→09:59)
[2024-04-27] MEDS: GAMMAGARD 300 IV (12:02)
[2024-05-04] VITALS (17 sets, daily range): BP systolic 99–139; BP diastolic 64–85
[2024-05-04] MEDS: GAMMAGARD 200 IV ×2 (07:59→10:05)
[2024-05-04] MEDS: GAMMAGARD 300 IV (12:09)
[2024-05-11] VITALS (16 sets, daily range): BP systolic 97–131; BP diastolic 41–71
[2024-05-11] MEDS: GAMMAGARD 200 IV ×2 (08:12→10:15)
[2024-05-11] MEDS: GAMMAGARD 300 IV (12:19)
[2024-05-18] VITALS (17 sets, daily range): BP systolic 100–133; BP diastolic 60–82
[2024-05-18] MEDS: GAMMAGARD 200 IV ×2 (07:59→10:03)
[2024-05-18] MEDS: GAMMAGARD 300 IV (12:10)
== END 2024-05-20 23:59 | disposition home or self-care (01) ==
LOC: OID 07:41
PROVIDERS: ATTENDING PHYSICIAN Neurological Surgery; FAMILY PHYSICIAN Family Medicine
DX: G61.81 Chronic inflammatory demyelinating polyneuritis (principal); N18.30 Chronic kidney disease, stage 3 unspecified; E11.22 Type 2 diabetes mellitus with diabetic chronic kidney disease
CPT/HCPCS: 96365; 96366; J1569

== ENCOUNTER → 2024-05-22 12:37 | Outpatient (REF) | payer MEDICARE, SELFPAY ==
[2024-05-22 13:49] LABS: % Basophils 0.5 % (0-2); % Eosinophils 0.2 % (0-6); % Immature Granulocytes 0.2 % (0-0.5); % Monocytes 13.7 % (1.7-9.3); % Neutrophils 61.4 % (42.2-75.2); Absolute Monocytes 0.6 10^3/uL (0.1-0.6); Absolute Neutrophils 2.6 10^3/uL (1.4-6.5); Hematocrit 39.3 % (39.0-52.0); Hemoglobin 12.5 g/dL (13.0-18.0); Mean Corp Hgb Conc. 31.8 g/dL (33.0-37.0); Mean Corpuscular Hgb 29.2 pg (27.0-31.0); Mean Corpuscular Volume 91.8 fL (80.0-94.0); Mean Platelet Volume 10.4 fL (7.4-10.4); Nucleated Red Blood Cells % 0 % (-); Platelet Count 134 10^3/uL (130-400); Red Blood Cell Count 4.28 10^6/uL (4.70-6.10); Red Cell Dist. Width 16.3 % (11.5-14.5); White Blood Cell Count 4.2 10^3/uL (4.8-10.8)
[2024-05-22 14:35] LABS: ALT (SGPT) 102 U/L (0-50); AST (SGOT) 66 U/L (17-59); Albumin 3.5 g/dl (3.5-5.0); Alkaline Phosphatase 236 U/L (38-126); Blood Urea Nitrogen 37 mg/dl (9-20); Calcium 8.7 mg/dl (8.4-10.2); Carbon Dioxide 28 mmol/L (22-30); Chloride 102 mmol/L (98-107); Glucose 124 mg/dl (70-99); Potassium 4.6 mmol/L (3.5-5.1); Sodium 136 mmol/L (135-145); Total Bilirubin 0.5 mg/dl (0.2-1.3); Total Protein 10.2 g/dl (6.3-8.2); eGFR 56.93
== END ==
LOC: SDSPAT 12:37
PROVIDERS: ATTENDING PHYSICIAN Internal Medicine Cardiovascular Disease; FAMILY PHYSICIAN Family Medicine; OTHER PHYSICIAN Internal Medicine Cardiovascular Disease
DX: Z95.0 Presence of cardiac pacemaker (principal); Z95.2 Presence of prosthetic heart valve; Z95.1 Presence of aortocoronary bypass graft; I48.21 Permanent atrial fibrillation
CPT/HCPCS: 36415; 80053; 85025; 93005

== ENCOUNTER 2024-05-29 06:13 | Day surgery (SDC) | payer MEDICARE, SELFPAY ==
[2024-05-22 13:19] VITALS: BMI 23.7
[2024-05-29] VITALS (8 sets, daily range): BP systolic 113–173; BP diastolic 54–100
[2024-05-29] MEDS: VANCOCIN 200 IV (06:56)
[2024-05-29] MEDS: NSS 500 IV (06:56)
[2024-05-29 06:57] LABS: Glucose - Point of Care 144 mg/dl (70-99)
[2024-05-29 07:13] LABS: INR 1.73
--- NOTE | 2024-05-29 10:29 | ITS.CL.PACE ---
Feeder Switchboard Operator - Pacemaker Implant
Pacemaker Implant
Procedure Report:
Date of Procedure: May 29, 2024.
Procedures: Single chamber pacemaker generator change. Pacemaker pulse generator explantation and pacemaker pulse generator implantation.
Indication: Pacemaker at [facility] from natural battery depletion. 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 Sow AFib in the 30-50's. 100% from the old pacemaker.
Performing physician: Ted Bynum MD, [facility].
Implant: Pacemaker Pulse Generator: Medtronic; Model# [id number]; Serial# [id number].
Explanted Pacemaker Pulse Generator (Implanted 04/25/2014): Pulse Generator: Medtronic; Model# [id number]; Serial# [id number].
Retained RV Lead (Implanted 04/25/2014): Medtronic; Model# [id number]; Serial# [id number].
Technique: A time out was performed. The procedure site was identified. The patient was anesthetized by the anesthesia service. Preoperative vancomycin and aztreonam was administered prior to skin incision. The patient was prepped and draped in the
usual fashion. Local anesthetic was applied to the left prepectoral subcutaneous tissue. A 3 inch incision was made over the pulse generator. The capsule was entered with Bovie cautery. The old pacemaker pulse generator was explanted. No Bovie
cautery was applied to the lead system. The lead was appropriately attached to the new device. The pocket was irrigated with antibiotic solution. Hemostasis was excellent. The device and leads were placed in the pocket. The incision was closed in
three layers with absorbable suture. Steri-strips and a dressing were applied. The estimated blood loss was less than 5 mL. There were no complications. No fluoroscopy.
Lead Analysis: RV lead: R: 12 mV; Threshold: 0.75 V @ 0.4 ms; Impedance: 530 ohms.
Final Programming: VVIR 60 - 130 bpm.
Conclusion: Uncomplicated Medtronic pacemaker change. The pacemaker system MRI conditional.
Recommendation: Routine post pacemaker care.
cc: Scott Martinez MD.
== END 2024-05-29 10:16 | disposition home or self-care (01) ==
LOC: CATH 06:13
PROVIDERS: ATTENDING PHYSICIAN Internal Medicine Cardiovascular Disease; FAMILY PHYSICIAN Family Medicine; OTHER PHYSICIAN Internal Medicine Cardiovascular Disease
DX: Z45.010 Encounter for checking and testing of cardiac pacemaker pulse generator [battery] (principal); I49.5 Sick sinus syndrome; I44.1 Atrioventricular block, second degree; I48.21 Permanent atrial fibrillation; I25.10 Atherosclerotic heart disease of native coronary artery without angina pectoris; Z95.1 Presence of aortocoronary bypass graft; I35.0 Nonrheumatic aortic (valve) stenosis; Z95.3 Presence of xenogenic heart valve; E11.22 Type 2 diabetes mellitus with diabetic chronic kidney disease; I12.9 Hypertensive chronic kidney disease with stage 1 through stage 4 chronic kidney disease, or unspecified chronic kidney disease; N18.30 Chronic kidney disease, stage 3 unspecified; E78.5 Hyperlipidemia, unspecified; K21.9 Gastro-esophageal reflux disease without esophagitis; N40.0 Benign prostatic hyperplasia without lower urinary tract symptoms; Z79.82 Long term (current) use of aspirin; Z79.84 Long term (current) use of oral hypoglycemic drugs; Z79.01 Long term (current) use of anticoagulants
CPT/HCPCS: 33227; 82962; 85610; C1786

== ENCOUNTER 2024-06-15 07:46 | Outpatient (RCR) | payer MEDICARE, SELFPAY ==
[2024-05-25] VITALS (15 sets, daily range): BP systolic 100–147; BP diastolic 42–77
[2024-05-25] MEDS: GAMMAGARD 200 IV ×2 (08:06→10:13)
[2024-05-25] MEDS: GAMMAGARD 300 IV (12:18)
[2024-06-01] VITALS (16 sets, daily range): BP systolic 115–160; BP diastolic 59–84
[2024-06-01] MEDS: GAMMAGARD 200 IV ×2 (08:14→10:18)
[2024-06-01] MEDS: GAMMAGARD 300 IV (12:24)
[2024-06-08] VITALS (17 sets, daily range): BP systolic 142–184; BP diastolic 52–96
[2024-06-08] MEDS: GAMMAGARD 200 IV ×2 (07:57→10:05)
[2024-06-08] MEDS: GAMMAGARD 300 IV (12:07)
[2024-06-15] VITALS (16 sets, daily range): BP systolic 115–143; BP diastolic 61–91
[2024-06-15] MEDS: GAMMAGARD 200 IV ×2 (08:08→10:05)
[2024-06-15] MEDS: GAMMAGARD 300 IV (12:13)
== END 2024-06-18 08:37 | disposition home or self-care (01) ==
LOC: OID 07:46
PROVIDERS: ATTENDING PHYSICIAN Neurological Surgery; FAMILY PHYSICIAN Family Medicine
DX: G61.81 Chronic inflammatory demyelinating polyneuritis (principal); N18.30 Chronic kidney disease, stage 3 unspecified; M18.30 Unilateral post-traumatic osteoarthritis of first carpometacarpal joint, unspecified hand; E11.22 Type 2 diabetes mellitus with diabetic chronic kidney disease
CPT/HCPCS: 96365; 96366; J1569

== ENCOUNTER → 2024-06-20 15:10 | Outpatient (REF) | payer MEDICARE, SELFPAY | LOC: RAD 15:10 | PROVIDERS: ATTENDING PHYSICIAN Family Medicine | DX: L03.031 Cellulitis of right toe (principal); T14.90XA Injury, unspecified, initial encounter | CPT/HCPCS: 73630 ==

== ENCOUNTER → 2024-07-02 09:44 | Outpatient (REF) | payer MEDICARE, SELFPAY ==
[2024-07-02 11:36] LABS: % Basophils 0.3 % (0-2); % Eosinophils 1.8 % (0-6); % Immature Granulocytes 0.3 % (0-0.5); % Lymphocytes 26.2 % (20.5-51.1); % Monocytes 15.5 % (1.7-9.3); % Neutrophils 55.9 % (42.2-75.2); Absolute Eosinophils 0.1 10^3/uL (0-0.7); Absolute Lymphocytes 0.9 10^3/uL (1.2-3.4); Absolute Monocytes 0.5 10^3/uL (0.1-0.6); Absolute Neutrophils 1.9 10^3/uL (1.4-6.5); Hematocrit 37.9 % (39.0-52.0); Hemoglobin 12.3 g/dL (13.0-18.0); Mean Corp Hgb Conc. 32.5 g/dL (33.0-37.0); Mean Corpuscular Hgb 29.8 pg (27.0-31.0); Mean Corpuscular Volume 91.8 fL (80.0-94.0); Nucleated Red Blood Cells % 0 % (-); Platelet Count 108 10^3/uL (130-400); Red Blood Cell Count 4.13 10^6/uL (4.70-6.10); Red Cell Dist. Width 14.8 % (11.5-14.5); White Blood Cell Count 3.4 10^3/uL (4.8-10.8)
[2024-07-02 12:52] LABS: ALT (SGPT) 77 U/L (0-50); AST (SGOT) 46 U/L (17-59); Albumin 3.5 g/dl (3.5-5.0); Alkaline Phosphatase 221 U/L (38-126); Blood Urea Nitrogen 28 mg/dl (9-20); Calcium 8.6 mg/dl (8.4-10.2); Carbon Dioxide 27 mmol/L (22-30); Chloride 104 mmol/L (98-107); Glucose 134 mg/dl (70-99); HDL Cholesterol 30 mg/dl; LDL Cholesterol, Calculated 71 mg/dl; Potassium 4.4 mmol/L (3.5-5.1); Sodium 136 mmol/L (135-145); Total Bilirubin 0.7 mg/dl (0.2-1.3); Total Cholesterol 116 mg/dl (50-199); Total Protein 8.4 g/dl (6.3-8.2); Triglyceride 75 mg/dl (10-149); Very Low Density Lipoprotein 15 mg/dl (0-30); eGFR > 60.00
[2024-07-02 13:12] LABS: TSH Reflex To Free T4 1.28 uIU/ml (0.47-4.68)
[2024-07-03 09:30] LABS: Glycohemoglobin (HgbA1c) 8.3 % (4.0-5.6)
== END ==
LOC: RCS 09:44
PROVIDERS: ATTENDING PHYSICIAN Internal Medicine Cardiovascular Disease; FAMILY PHYSICIAN Family Medicine
DX: Z01.818 Encounter for other preprocedural examination (principal); Z01.812 Encounter for preprocedural laboratory examination; I48.21 Permanent atrial fibrillation; N18.31 Chronic kidney disease, stage 3a; G61.81 Chronic inflammatory demyelinating polyneuritis; E11.22 Type 2 diabetes mellitus with diabetic chronic kidney disease; J90 Pleural effusion, not elsewhere classified; R79.89 Other specified abnormal findings of blood chemistry
CPT/HCPCS: 36415; 80053; 80061; 83036; 84443; 85025; 93005

== ENCOUNTER → 2024-07-05 10:31 | Outpatient (REF) | payer MEDICARE, SELFPAY ==
[2024-07-05 13:58] LABS: Hepatitis B Surface Antigen Negative (Negative)
[2024-07-05 14:01] LABS: Hepatitis A IgM Antibody Negative (Negative)
[2024-07-05 14:15] LABS: Hepatitis C Antibody Negative (Negative)
[2024-07-05 20:13] LABS: Hepatitis A Antibody, Total Positive (Negative)
== END ==
LOC: REG 10:31
PROVIDERS: ATTENDING PHYSICIAN Family Medicine
DX: R79.89 Other specified abnormal findings of blood chemistry (principal); K26.4 Chronic or unspecified duodenal ulcer with hemorrhage; I48.0 Paroxysmal atrial fibrillation; E11.22 Type 2 diabetes mellitus with diabetic chronic kidney disease; G61.81 Chronic inflammatory demyelinating polyneuritis
CPT/HCPCS: 36415; 86708; 86709; 86803; 87340

== ENCOUNTER 2024-07-20 07:45 | Outpatient (RCR) | payer MEDICARE, SELFPAY ==
[2024-06-22] VITALS (17 sets, daily range): BP systolic 108–155; BP diastolic 57–84
[2024-06-22] MEDS: GAMMAGARD 200 IV ×2 (08:16→10:18)
[2024-06-22] MEDS: GAMMAGARD 300 IV (12:17)
[2024-06-29] VITALS (17 sets, daily range): BP systolic 100–129; BP diastolic 49–69
[2024-06-29] MEDS: GAMMAGARD 200 IV ×2 (08:09→10:18)
[2024-06-29] MEDS: GAMMAGARD 300 IV (12:24)
[2024-07-06] MEDS: GAMMAGARD 200 IV ×2 (08:11→10:08)
[2024-07-06 08:12] VITALS: BP 113/66
[2024-07-06 08:14] VITALS: BP 138/78
[2024-07-06] MEDS: GAMMAGARD 300 IV (12:11)
[2024-07-06 14:12] VITALS: BP 140/70
[2024-07-06 14:42] VITALS: BP 140/71
[2024-07-06 15:12] VITALS: BP 125/71
[2024-07-06 15:34] VITALS: BP 144/73
[2024-07-13] VITALS (16 sets, daily range): BP systolic 97–144; BP diastolic 53–81
[2024-07-13] MEDS: GAMMAGARD 200 IV ×2 (08:21→10:30)
[2024-07-13] MEDS: GAMMAGARD 300 IV (12:39)
[2024-07-20] VITALS (17 sets, daily range): BP systolic 114–144; BP diastolic 54–84
[2024-07-20] MEDS: GAMMAGARD 200 IV ×2 (08:03→10:08)
[2024-07-20] MEDS: GAMMAGARD 300 IV (12:15)
== END 2024-07-21 23:59 | disposition home or self-care (01) ==
LOC: OID 07:45
PROVIDERS: ATTENDING PHYSICIAN Neurological Surgery; FAMILY PHYSICIAN Family Medicine
DX: G61.81 Chronic inflammatory demyelinating polyneuritis (principal); M18.30 Unilateral post-traumatic osteoarthritis of first carpometacarpal joint, unspecified hand; E11.22 Type 2 diabetes mellitus with diabetic chronic kidney disease; J86.9 Pyothorax without fistula; N18.30 Chronic kidney disease, stage 3 unspecified
CPT/HCPCS: 96365; 96366; J1569

== ENCOUNTER 2024-08-17 07:38 | Outpatient (RCR) | payer MEDICARE, SELFPAY ==
[2024-08-03] VITALS (15 sets, daily range): BP systolic 101–147; BP diastolic 62–88
[2024-08-03] MEDS: GAMMAGARD 200 IV ×2 (08:00→10:06)
[2024-08-03] MEDS: GAMMAGARD 300 IV (12:09)
[2024-08-17] VITALS (17 sets, daily range): BP systolic 103–145; BP diastolic 38–76
[2024-08-17] MEDS: GAMMAGARD 200 IV ×2 (08:15→10:20)
[2024-08-17] MEDS: GAMMAGARD 300 IV (12:34)
== END 2024-08-20 08:18 | disposition home or self-care (01) ==
LOC: OID 07:38
PROVIDERS: ATTENDING PHYSICIAN Neurological Surgery; FAMILY PHYSICIAN Family Medicine
DX: G61.81 Chronic inflammatory demyelinating polyneuritis (principal); E11.22 Type 2 diabetes mellitus with diabetic chronic kidney disease; N18.30 Chronic kidney disease, stage 3 unspecified; J86.9 Pyothorax without fistula; M18.30 Unilateral post-traumatic osteoarthritis of first carpometacarpal joint, unspecified hand
CPT/HCPCS: 96365; 96366; J1569

== ENCOUNTER 2024-09-14 07:42 | Outpatient (RCR) | payer MEDICARE, SELFPAY ==
[2024-08-31] VITALS (16 sets, daily range): BP systolic 115–142; BP diastolic 56–80
[2024-08-31] MEDS: GAMMAGARD 200 IV ×2 (08:11→10:12)
[2024-08-31] MEDS: GAMMAGARD 300 IV (12:19)
[2024-09-14] VITALS (18 sets, daily range): BP systolic 112–142; BP diastolic 63–77
[2024-09-14] MEDS: GAMMAGARD 200 IV ×2 (08:15→10:22)
[2024-09-14] MEDS: GAMMAGARD 300 IV (12:36)
== END 2024-09-17 08:44 | disposition home or self-care (01) ==
LOC: OID 07:42
PROVIDERS: ATTENDING PHYSICIAN Neurological Surgery; FAMILY PHYSICIAN Family Medicine
DX: G61.81 Chronic inflammatory demyelinating polyneuritis (principal); E11.22 Type 2 diabetes mellitus with diabetic chronic kidney disease; N18.30 Chronic kidney disease, stage 3 unspecified; J86.9 Pyothorax without fistula; M18.30 Unilateral post-traumatic osteoarthritis of first carpometacarpal joint, unspecified hand
CPT/HCPCS: 96365; 96366; J1569

== ENCOUNTER 2024-10-12 07:38 | Outpatient (RCR) | payer MEDICARE, SELFPAY ==
[2024-09-28] VITALS (16 sets, daily range): BP systolic 128–165; BP diastolic 64–87; BMI 23.5
[2024-09-28] MEDS: GAMMAGARD 200 IV ×2 (08:19→10:11)
[2024-09-28 08:26] LABS: % Basophils 0.5 % (0-2); % Eosinophils 1.2 % (0-6); % Immature Granulocytes 0.4 % (0-0.5); % Lymphocytes 18.9 % (20.5-51.1); % Monocytes 8.6 % (1.7-9.3); % Neutrophils 70.4 % (42.2-75.2); Absolute Eosinophils 0.1 10^3/uL (0-0.7); Absolute Lymphocytes 1.1 10^3/uL (1.2-3.4); Absolute Monocytes 0.5 10^3/uL (0.1-0.6); Hematocrit 39.2 % (39.0-52.0); Hemoglobin 12.8 g/dL (13.0-18.0); Mean Corp Hgb Conc. 32.7 g/dL (33.0-37.0); Mean Corpuscular Hgb 29.9 pg (27.0-31.0); Mean Corpuscular Volume 91.6 fL (80.0-94.0); Mean Platelet Volume 10.7 fL (7.4-10.4); Nucleated Red Blood Cells % 0 % (-); Platelet Count 147 10^3/uL (130-400); Red Blood Cell Count 4.28 10^6/uL (4.70-6.10); Red Cell Dist. Width 14.6 % (11.5-14.5); White Blood Cell Count 5.6 10^3/uL (4.8-10.8)
[2024-09-28 10:30] LABS: Glycohemoglobin (HgbA1c) 7.6 % (4.0-5.6)
[2024-09-28 11:03] LABS: ALT (SGPT) 74 U/L (0-50); AST (SGOT) 52 U/L (17-59); Albumin 3.3 g/dl (3.5-5.0); Alkaline Phosphatase 205 U/L (38-126); Blood Urea Nitrogen 34 mg/dl (9-20); Calcium 8.5 mg/dl (8.4-10.2); Carbon Dioxide 30 mmol/L (22-30); Chloride 101 mmol/L (98-107); Estimated Creatinine Clearance 57 ml/min; Glucose 131 mg/dl (70-99); Potassium 4.4 mmol/L (3.5-5.1); Sodium 139 mmol/L (135-145); Total Bilirubin 0.5 mg/dl (0.2-1.3); Total Protein 7.9 g/dl (6.3-8.2); eGFR > 60.00
[2024-09-28] MEDS: GAMMAGARD 300 IV (12:19)
[2024-10-12] VITALS (17 sets, daily range): BP systolic 111–145; BP diastolic 53–83; BMI 23.6
[2024-10-12] MEDS: GAMMAGARD 200 IV ×2 (07:59→10:02)
[2024-10-12] MEDS: GAMMAGARD 300 IV (12:17)
== END 2024-10-15 09:15 | disposition home or self-care (01) ==
LOC: OID 07:38
PROVIDERS: ATTENDING PHYSICIAN Neurological Surgery; FAMILY PHYSICIAN Family Medicine
DX: G61.81 Chronic inflammatory demyelinating polyneuritis (principal); E11.22 Type 2 diabetes mellitus with diabetic chronic kidney disease; N18.30 Chronic kidney disease, stage 3 unspecified; J86.9 Pyothorax without fistula; M18.30 Unilateral post-traumatic osteoarthritis of first carpometacarpal joint, unspecified hand
CPT/HCPCS: 80053; 83036; 85025; 96365; 96366; J1569

== ENCOUNTER 2024-11-09 07:39 | Outpatient (RCR) | payer MEDICARE, SELFPAY ==
[2024-10-26] VITALS (19 sets, daily range): BP systolic 94–154; BP diastolic 41–80
[2024-10-26] MEDS: GAMMAGARD 200 IV ×2 (07:55→10:21)
[2024-10-26] MEDS: GAMMAGARD 300 IV (12:48)
[2024-11-09] VITALS (15 sets, daily range): BP systolic 108–143; BP diastolic 46–81
[2024-11-09] MEDS: GAMMAGARD 200 IV ×2 (08:02→10:04)
[2024-11-09] MEDS: GAMMAGARD 300 IV (12:09)
== END 2024-11-20 23:59 | disposition home or self-care (01) ==
LOC: OID 07:39
PROVIDERS: ATTENDING PHYSICIAN Neurological Surgery; FAMILY PHYSICIAN Family Medicine
DX: G61.81 Chronic inflammatory demyelinating polyneuritis (principal); E11.22 Type 2 diabetes mellitus with diabetic chronic kidney disease; N18.30 Chronic kidney disease, stage 3 unspecified; J86.9 Pyothorax without fistula; M18.30 Unilateral post-traumatic osteoarthritis of first carpometacarpal joint, unspecified hand
CPT/HCPCS: 96365; 96366; J1569

== ENCOUNTER 2024-12-21 07:37 | Outpatient (RCR) | payer MEDICARE, SELFPAY ==
[2024-11-23] VITALS (17 sets, daily range): BP systolic 114–136; BP diastolic 47–86
[2024-11-23] MEDS: GAMMAGARD 300 IV (08:07)
[2024-11-23] MEDS: GAMMAGARD 200 IV ×2 (11:06→13:14)
[2024-12-07] VITALS (16 sets, daily range): BP systolic 112–156; BP diastolic 45–87
[2024-12-07] MEDS: GAMMAGARD 200 IV ×2 (08:11→10:17)
[2024-12-07] MEDS: GAMMAGARD 300 IV (12:25)
[2024-12-21] VITALS (17 sets, daily range): BP systolic 98–137; BP diastolic 46–83
[2024-12-21] MEDS: GAMMAGARD 200 IV ×2 (08:04→10:09)
[2024-12-21] MEDS: GAMMAGARD 300 IV (12:11)
== END 2024-12-21 23:59 | disposition home or self-care (01) ==
LOC: OID 07:37
PROVIDERS: ATTENDING PHYSICIAN Neurological Surgery; FAMILY PHYSICIAN Family Medicine
DX: G61.81 Chronic inflammatory demyelinating polyneuritis (principal); N18.30 Chronic kidney disease, stage 3 unspecified; E11.22 Type 2 diabetes mellitus with diabetic chronic kidney disease; J86.9 Pyothorax without fistula; M18.30 Unilateral post-traumatic osteoarthritis of first carpometacarpal joint, unspecified hand
CPT/HCPCS: 96365; 96366; J1569

== ENCOUNTER 2025-01-18 07:36 | Outpatient (RCR) | payer MEDICARE, SELFPAY ==
[2025-01-04] VITALS (23 sets, daily range): BP systolic 120–156; BP diastolic 51–90
[2025-01-04] MEDS: GAMMAGARD 300 IV (08:04)
[2025-01-04] MEDS: GAMMAGARD 200 IV ×2 (11:30→13:32)
[2025-01-18] VITALS (16 sets, daily range): BP systolic 125–154; BP diastolic 72–94
[2025-01-18] MEDS: GAMMAGARD 300 IV (08:10)
[2025-01-18] MEDS: GAMMAGARD 200 IV ×2 (11:09→13:14)
== END 2025-01-18 23:59 | disposition home or self-care (01) ==
LOC: OID 07:36
PROVIDERS: ATTENDING PHYSICIAN Neurological Surgery; FAMILY PHYSICIAN Family Medicine
DX: G61.81 Chronic inflammatory demyelinating polyneuritis (principal); N18.30 Chronic kidney disease, stage 3 unspecified; E11.22 Type 2 diabetes mellitus with diabetic chronic kidney disease; J86.9 Pyothorax without fistula
CPT/HCPCS: 96365; 96366; 96376; J1569

== ENCOUNTER 2025-02-01 07:35 | Outpatient (RCR) | payer MEDICARE, SELFPAY ==
[2025-02-01] VITALS (17 sets, daily range): BP systolic 121–156; BP diastolic 55–91
[2025-02-01] MEDS: GAMMAGARD 200 IV ×2 (08:16→10:16)
[2025-02-01] MEDS: GAMMAGARD 300 IV (12:25)
== END 2025-02-18 23:59 | disposition home or self-care (01) ==
LOC: OID 07:35
PROVIDERS: ATTENDING PHYSICIAN Neurological Surgery; FAMILY PHYSICIAN Family Medicine
DX: G61.81 Chronic inflammatory demyelinating polyneuritis (principal); N18.30 Chronic kidney disease, stage 3 unspecified; E11.22 Type 2 diabetes mellitus with diabetic chronic kidney disease; J86.9 Pyothorax without fistula; M18.30 Unilateral post-traumatic osteoarthritis of first carpometacarpal joint, unspecified hand
CPT/HCPCS: 96365; 96366; J1569

== ENCOUNTER → 2025-02-25 09:47 | Outpatient (REF) | payer MEDICARE, SELFPAY | LOC: DHVS 09:47 | PROVIDERS: ATTENDING PHYSICIAN Registered Nurse; FAMILY PHYSICIAN Family Medicine | DX: I73.9 Peripheral vascular disease, unspecified (principal) | CPT/HCPCS: 93922; 93925 ==

== ENCOUNTER → 2025-03-06 10:55 | Outpatient (REF) | payer MEDICARE, SELFPAY ==
[2025-03-06 11:54] LABS: Glycohemoglobin (HgbA1c) 7.1 % (4.0-5.6)
[2025-03-06 12:24] LABS: Blood Urea Nitrogen 28 mg/dl (9-20); Calcium 9.2 mg/dl (8.4-10.2); Carbon Dioxide 28 mmol/L (22-30); Chloride 106 mmol/L (98-107); Glucose 113 mg/dl (70-99); Potassium 5.4 mmol/L (3.5-5.1); Sodium 141 mmol/L (135-145); eGFR > 60.00
== END ==
LOC: REG 10:55
PROVIDERS: ATTENDING PHYSICIAN Family Medicine
DX: E11.22 Type 2 diabetes mellitus with diabetic chronic kidney disease (principal); I13.0 Hypertensive heart and chronic kidney disease with heart failure and stage 1 through stage 4 chronic kidney disease, or unspecified chronic kidney disease
CPT/HCPCS: 36415; 80048; 83036

== ENCOUNTER 2025-03-15 07:35 | Outpatient (RCR) | payer MEDICARE, SELFPAY ==
[2025-02-22] VITALS (16 sets, daily range): BP systolic 122–172; BP diastolic 63–93
[2025-02-22] MEDS: GAMMAGARD 200 IV ×2 (07:59→09:55)
[2025-02-22] MEDS: GAMMAGARD 300 IV (11:57)
[2025-03-15] VITALS (14 sets, daily range): BP systolic 121–165; BP diastolic 40–96
[2025-03-15] MEDS: GAMMAGARD 200 IV ×2 (07:54→10:00)
[2025-03-15] MEDS: GAMMAGARD 300 IV (12:03)
[2025-03-15] MEDS: TYLENOL 650 MG PO (14:41)
--- NOTE | 2025-03-15 14:49 | PTCARENOTE ---
pt c/o being very cold, temp taken was 99.4 orally. Tylenol ordered by Eli Ramirez. Warm blankets provided, pt offers no other complaints at this time.
== END 2025-03-18 09:52 | disposition home or self-care (01) ==
LOC: OID 07:35
PROVIDERS: ATTENDING PHYSICIAN Neurological Surgery; FAMILY PHYSICIAN Family Medicine
DX: G61.81 Chronic inflammatory demyelinating polyneuritis (principal); N18.30 Chronic kidney disease, stage 3 unspecified; E11.22 Type 2 diabetes mellitus with diabetic chronic kidney disease; J86.9 Pyothorax without fistula; M18.30 Unilateral post-traumatic osteoarthritis of first carpometacarpal joint, unspecified hand
CPT/HCPCS: 96365; 96366; J1569

== ENCOUNTER → 2025-03-16 10:05 | Outpatient (REF) | payer MEDICARE, SELFPAY | LOC: RAD 10:05 | PROVIDERS: ATTENDING PHYSICIAN Nurse Practitioner Family; FAMILY PHYSICIAN Family Medicine | DX: J22 Unspecified acute lower respiratory infection (principal) | CPT/HCPCS: 71046 ==

== ENCOUNTER → 2025-04-03 13:51 | Outpatient (REF) | payer MEDICARE, SELFPAY | LOC: RAD 13:51 | PROVIDERS: ATTENDING PHYSICIAN Family Medicine; FAMILY PHYSICIAN Family Medicine | DX: R05.2 Subacute cough (principal) | CPT/HCPCS: 71046 ==

== ENCOUNTER 2025-04-05 07:35 | Outpatient (RCR) | payer MEDICARE, SELFPAY ==
[2025-04-05] VITALS (17 sets, daily range): BP systolic 127–157; BP diastolic 60–95
[2025-04-05] MEDS: GAMMAGARD 200 IV ×2 (07:58→10:00)
[2025-04-05] MEDS: GAMMAGARD 300 IV (12:05)
== END 2025-04-08 09:40 | disposition home or self-care (01) ==
LOC: OID 07:35
PROVIDERS: ATTENDING PHYSICIAN Neurological Surgery; FAMILY PHYSICIAN Family Medicine
DX: G61.81 Chronic inflammatory demyelinating polyneuritis (principal)
CPT/HCPCS: 96365; 96366; J1569

== ENCOUNTER 2025-05-17 07:32 | Outpatient (RCR) | payer MEDICARE, SELFPAY ==
[2025-04-26] VITALS (17 sets, daily range): BP systolic 126–160; BP diastolic 62–95
[2025-04-26] MEDS: GAMMAGARD 200 IV ×2 (08:07→10:18)
[2025-04-26] MEDS: GAMMAGARD 300 IV (12:22)
[2025-05-17] VITALS (17 sets, daily range): BP systolic 116–160; BP diastolic 52–93
[2025-05-17] MEDS: GAMMAGARD 200 IV ×2 (08:07→10:12)
[2025-05-17] MEDS: GAMMAGARD 300 IV (12:27)
== END 2025-05-20 09:12 | disposition home or self-care (01) ==
LOC: OID 07:32
PROVIDERS: ATTENDING PHYSICIAN Neurological Surgery; FAMILY PHYSICIAN Family Medicine
DX: G61.81 Chronic inflammatory demyelinating polyneuritis (principal); N18.30 Chronic kidney disease, stage 3 unspecified; E11.22 Type 2 diabetes mellitus with diabetic chronic kidney disease; J86.9 Pyothorax without fistula; M18.30 Unilateral post-traumatic osteoarthritis of first carpometacarpal joint, unspecified hand
CPT/HCPCS: 96365; 96366; J1569

== ENCOUNTER 2025-06-07 07:34 | Outpatient (RCR) | payer MEDICARE, SELFPAY ==
[2025-06-07] VITALS (17 sets, daily range): BP systolic 113–144; BP diastolic 55–95
[2025-06-07] MEDS: GAMMAGARD 200 IV ×2 (07:51→09:55)
[2025-06-07] MEDS: GAMMAGARD 300 IV (12:02)
== END 2025-06-10 10:30 | disposition home or self-care (01) ==
LOC: OID 07:34
PROVIDERS: ATTENDING PHYSICIAN Neurological Surgery; FAMILY PHYSICIAN Family Medicine
DX: G61.81 Chronic inflammatory demyelinating polyneuritis (principal); N18.30 Chronic kidney disease, stage 3 unspecified; E11.22 Type 2 diabetes mellitus with diabetic chronic kidney disease; J86.9 Pyothorax without fistula; M18.30 Unilateral post-traumatic osteoarthritis of first carpometacarpal joint, unspecified hand
CPT/HCPCS: 96365; 96366; J1569

== ENCOUNTER → 2025-06-11 10:11 | Outpatient (REF) | payer MEDICARE, SELFPAY ==
[2025-06-11 12:02] LABS: Glycohemoglobin (HgbA1c) 7.0 % (4.0-5.6)
[2025-06-11 12:03] LABS: ALT (SGPT) 70 U/L (0-50); AST (SGOT) 50 U/L (17-59); Albumin 3.9 g/dl (3.5-5.0); Alkaline Phosphatase 181 U/L (38-126); Blood Urea Nitrogen 26 mg/dl (9-20); Calcium 8.7 mg/dl (8.4-10.2); Carbon Dioxide 33 mmol/L (22-30); Chloride 103 mmol/L (98-107); Glucose 99 mg/dl (70-99); HDL Cholesterol 39 mg/dl; LDL Cholesterol, Calculated 84 mg/dl; Potassium 5.5 mmol/L (3.5-5.1); Sodium 140 mmol/L (135-145); Total Protein 9.2 g/dl (6.3-8.2); Very Low Density Lipoprotein 15 mg/dl (0-30); eGFR > 60.00
== END ==
LOC: REG 10:11
PROVIDERS: ATTENDING PHYSICIAN Student in an Organized Health Care Education/Training Program; FAMILY PHYSICIAN Family Medicine
DX: Z95.1 Presence of aortocoronary bypass graft (principal); N18.31 Chronic kidney disease, stage 3a; I73.9 Peripheral vascular disease, unspecified; I48.21 Permanent atrial fibrillation; I25.10 Atherosclerotic heart disease of native coronary artery without angina pectoris; G61.81 Chronic inflammatory demyelinating polyneuritis; E11.22 Type 2 diabetes mellitus with diabetic chronic kidney disease; E87.5 Hyperkalemia
CPT/HCPCS: 36415; 80053; 80061; 83036

== ENCOUNTER 2025-07-19 07:31 | Outpatient (RCR) | payer MEDICARE, SELFPAY ==
[2025-06-28] VITALS (16 sets, daily range): BP systolic 105–161; BP diastolic 54–84
[2025-06-28] MEDS: GAMMAGARD 300 IV (08:21)
[2025-06-28] MEDS: GAMMAGARD 200 IV ×2 (11:22→13:24)
[2025-07-19] VITALS (17 sets, daily range): BP systolic 118–156; BP diastolic 46–88
[2025-07-19] MEDS: GAMMAGARD 300 IV (08:10)
[2025-07-19] MEDS: GAMMAGARD 200 IV ×2 (11:13→13:21)
== END 2025-07-21 23:59 | disposition home or self-care (01) ==
LOC: OID 07:31
PROVIDERS: ATTENDING PHYSICIAN Neurological Surgery; FAMILY PHYSICIAN Family Medicine
DX: G61.81 Chronic inflammatory demyelinating polyneuritis (principal); N18.30 Chronic kidney disease, stage 3 unspecified; E11.22 Type 2 diabetes mellitus with diabetic chronic kidney disease; J86.9 Pyothorax without fistula; M18.30 Unilateral post-traumatic osteoarthritis of first carpometacarpal joint, unspecified hand
CPT/HCPCS: 96365; 96366; J1569

== ENCOUNTER 2025-08-09 07:39 | Outpatient (RCR) | payer MEDICARE, SELFPAY ==
[2025-08-09] VITALS (17 sets, daily range): BP systolic 120–177; BP diastolic 59–93
[2025-08-09] MEDS: GAMMAGARD 200 IV ×2 (08:07→10:14)
[2025-08-09] MEDS: GAMMAGARD 300 IV (12:20)
== END 2025-08-12 09:13 | disposition home or self-care (01) ==
LOC: OID 07:39
PROVIDERS: ATTENDING PHYSICIAN Neurological Surgery; FAMILY PHYSICIAN Family Medicine
DX: G61.81 Chronic inflammatory demyelinating polyneuritis (principal); N18.30 Chronic kidney disease, stage 3 unspecified; E11.22 Type 2 diabetes mellitus with diabetic chronic kidney disease; J86.9 Pyothorax without fistula; M18.30 Unilateral post-traumatic osteoarthritis of first carpometacarpal joint, unspecified hand
CPT/HCPCS: 96365; 96366; J1569

== ENCOUNTER 2025-09-20 07:32 | Outpatient (RCR) | payer MEDICARE, SELFPAY ==
[2025-08-30] VITALS (16 sets, daily range): BP systolic 132–177; BP diastolic 65–87
[2025-08-30] MEDS: GAMMAGARD 300 IV (07:54)
[2025-08-30] MEDS: GAMMAGARD 200 IV ×2 (10:52→12:50)
[2025-09-20] VITALS (17 sets, daily range): BP systolic 125–172; BP diastolic 57–95
[2025-09-20] MEDS: GAMMAGARD 300 IV (08:01)
[2025-09-20] MEDS: GAMMAGARD 200 IV ×2 (10:56→12:54)
== END 2025-09-20 23:59 | disposition home or self-care (01) ==
LOC: OID 07:32
PROVIDERS: ATTENDING PHYSICIAN Neurological Surgery; FAMILY PHYSICIAN Family Medicine
DX: G61.81 Chronic inflammatory demyelinating polyneuritis (principal); N18.30 Chronic kidney disease, stage 3 unspecified; E11.22 Type 2 diabetes mellitus with diabetic chronic kidney disease; J86.9 Pyothorax without fistula; M18.30 Unilateral post-traumatic osteoarthritis of first carpometacarpal joint, unspecified hand
CPT/HCPCS: 96365; 96366; J1569

== ENCOUNTER → 2025-09-30 13:15 | Outpatient (REF) | payer MEDICARE, SELFPAY | LOC: HWRAD 13:15 | PROVIDERS: ATTENDING PHYSICIAN Internal Medicine Critical Care Medicine; FAMILY PHYSICIAN Family Medicine | DX: R91.8 Other nonspecific abnormal finding of lung field (principal) | CPT/HCPCS: 71250 ==

== ENCOUNTER 2025-10-11 07:30 | Outpatient (RCR) | payer MEDICARE, SELFPAY ==
[2025-10-11] VITALS (15 sets, daily range): BP systolic 119–183; BP diastolic 43–98
[2025-10-11] MEDS: GAMMAGARD 300 IV (07:53)
[2025-10-11] MEDS: GAMMAGARD 200 IV ×2 (11:01→13:05)
== END 2025-10-14 10:55 | disposition home or self-care (01) ==
LOC: OID 07:30
PROVIDERS: ATTENDING PHYSICIAN Neurological Surgery; FAMILY PHYSICIAN Family Medicine
DX: G61.81 Chronic inflammatory demyelinating polyneuritis (principal); N18.30 Chronic kidney disease, stage 3 unspecified; E11.22 Type 2 diabetes mellitus with diabetic chronic kidney disease; J86.9 Pyothorax without fistula; M18.30 Unilateral post-traumatic osteoarthritis of first carpometacarpal joint, unspecified hand
CPT/HCPCS: 96365; 96366; J1569

== ENCOUNTER 2025-11-01 07:33 | Outpatient (RCR) | payer MEDICARE, SELFPAY ==
[2025-11-01] VITALS (18 sets, daily range): BP systolic 143–185; BP diastolic 65–89
[2025-11-01] MEDS: GAMMAGARD 200 IV ×2 (08:20→10:18)
[2025-11-01] MEDS: GAMMAGARD 300 IV (12:22)
== END 2025-11-04 11:02 | disposition home or self-care (01) ==
LOC: OID 07:33
PROVIDERS: ATTENDING PHYSICIAN Neurological Surgery; FAMILY PHYSICIAN Family Medicine
DX: G61.81 Chronic inflammatory demyelinating polyneuritis (principal); N18.30 Chronic kidney disease, stage 3 unspecified; E11.22 Type 2 diabetes mellitus with diabetic chronic kidney disease; J86.9 Pyothorax without fistula
CPT/HCPCS: 96365; 96366; J1569